=== PATIENT | female | born 1980 | race American Indian/Alaskan Native ===

== ENCOUNTER 2016-11-28 04:50 | Emergency (ER) | payer OTHER ==
[2016-11-28 05:00] VITALS: BMI 31.6
[2016-11-28 05:06] VITALS: TEMP 98.2
--- NOTE | 2016-11-28 05:28 | ED PDOC ---
Arrival/HPI - General Historian: Patient - History of Present Illness Time/Duration: Other (20:00 yesterday) Symptom Onset: Gradual Symptom Course: Unchanged Activities at Onset: Rest, Light Context: Home <Doom Rodriguez - Last Filed: 11/28/16 06:54> <Eric Klein - Last Filed: 11/28/16 12:58> - General Chief Complaint: ENT Problem Time Seen by Provider: 11/28/16 05:12 - History of Present Illness Narrative History of Present Illness (Text): 11/28/16 05:25 Ruchi Alan is a 36 year old female, with no significant past medical history , who presents to the Emergency department complaining of sore throat since 19: 30 yesterday. Patient states she ate a lot of shrimp at a buffet yesterday evening and now reports she feels like there is something stuck in her throat. Patient denies any shortness of breath, fever, chills, nausea, neck pain, or any other complaints. (Domo Rodriguez) Past Medical History - Provider Review Nursing Documentation Reviewed: Yes - Infectious Disease Hx of Infectious Diseases: None - Cardiac Hx Heart Murmur: Yes - Pulmonary Hx Asthma: Yes Hx Bronchitis: Yes - Psychiatric Hx Substance Use: No - Surgical History Hx Section: Yes - Anesthesia Hx Anesthesia: Yes Hx Anesthesia Reactions: No Hx Malignant Hyperthermia: No - Suicidal Assessment Feels Threatened In Home Enviroment: No <Domo Rodriguez - Last Filed: 11/28/16 06:54> Family/Social History - Physician Review Nursing Documentation Reviewed: Yes Family/Social History: Unknown Family HX Smoking Status: Light Smoker < 10 Cigarettes Daily Hx Alcohol Use: Yes Frequency of alcohol use: Socially Hx Substance Use: No <Domo Rodriguez - Last Filed: 11/28/16 06:54> Allergies/Home Meds <Domo Rodriguez - Last Filed: 11/28/16 06:54> <Eric Klein - Last Filed: 11/28/16 12:58> Allergies/Adverse Reactions: Allergies beeswax Allergy (Verified 11/28/16 05:00) ITCHING Home Medications: Home Meds Medication Instructions Recorded Confirmed Albuterol 0.083% [Albuterol 0.083% 2.5 mg INH BID PRN 10/11/14 11/30/14 Inhal Ramona (2.5 mg/3 ml) UD] Diphenhydramine Hydrochlorid 25 mg PO BID 11/30/14 11/30/14 [Benadryl] Prednisone 20 mg PO DAILY 11/30/14 11/30/14 Physical Exam Vital Signs Reviewed: Yes Temperature: Afebrile Blood Pressure: Normal Pulse: Regular Respiratory Rate: Normal Appearance: Positive for: Well-Appearing, Non-Toxic, Comfortable Pain Distress: None Mental Status: Positive for: Alert and Oriented X 3 - Systems Exam Pharnyx: Present: Normal. No: ERYTHEMA, EXUDATE, TONSILS ENLARGED, Peritonsilar Swelling, Uvular Deviation, Muffled/Hoarse Voice, Strider, Soft Palate/Uvular Edema <Domo Rodriguez - Last Filed: 11/28/16 06:54> <Eric Klein - Last Filed: 11/28/16 12:58> - Physical Exam Narrative Physical Exam (Text): - Review of Systems Constitutional: Normal. absent: Fatigue, Weight Change, Fevers Eyes: Normal ENT: +sore throat Respiratory: Normal absent: SOB, Cough, Sputum Cardiovascular: Normal absent: Chest pain, Palpitations, Syncope Gastrointestinal: Normal absent: Abdominal pain, Diarrhea, Nausea, Vomiting Genitourinary: Normal. absent: Dysuria, Frequency, Hematuria Musculoskeletal: Normal. absent: Arthralgias, Back Pain, Neck Pain Skin: Normal Neurological: Normal absent: Focal Weakness Endocrine: Normal Hemo/Lymphatic: Normal Psychiatric: Normal - Physical exam Patient appears well-appearing, age appropriate - Systems Exam Head: Present: Atraumatic, Normocephalic Pupils: Present: PERRL Extraocular Muscles: Present: EOMI Conjunctiva: Present: Normal Mouth: Present: Moist Mucous Membranes Neck: Present: Normal Range of Motion. No: MIDLINE TENDERNESS, Paraspinal Tenderness Respiratory/Chest: Present: Clear to Auscultation, Good Air Exchange. No: Respiratory Distress, Accessory Muscle Use, Tachypneic Cardiovascular: Present: Regular Rate and Rhythm, Normal S1, S2, Peripheral Pulses Present. No: Murmurs Neurological: Present: GCS=15, Speech Normal, cranial nerves II through XII fully intact with no cerebellar abnormality, neuro-sensory fully intact. No focal neurological deficits. Skin: Present: Warm, Dry, Normal Color. No: Rashes Lymphatic: Present: OX3, NI, NC Psychiatric: Present: Alert, Oriented x 3, Normal Insight, Normal Concentration (Domo Rodriguez) Vital Signs Temp Pulse Resp BP Pulse Ox 11/28/16 08:50 98.2 F 62 20 125/75 99 11/28/16 05:04 98.2 F 80 17 138/95 H 100 Medical Decision Making <Domo Rodriguez - Last Filed: 11/28/16 06:54> <Eric Klein - Last Filed: 11/28/16 12:58> ED Course and Treatment: 11/28/16 05:25 Impression: 36 year old female complaining of sore throat and foreign body sensation in her throat since yesterday. Exam is benign. Differential Diagnosis include but are not limited to: foreign body vs. pharyngitis vs. laryngitis Plan: -- CT Neck Soft Tissue w/o contrast -- Reassess and disposition Progress Notes: 11/28/16 07:00 patient signed out to Dr. Klein in stable condition, fu CT, reeval, dispo (Domo Rodriguez) 11/28/16 08:37 pt endorsed to me pending ct. cr shows mild tonsillitis. pt sleepign in nad. decadron dosed. advise outpt f/u and return precautions. (Eric Klein) - RAD Interpretation Radiology Orders: 11/28/16 05:29 NECK SOFT TISSUE W/O CONTRAST [CT] Stat - Medication Orders Current Medication Orders: Discontinued Medications Dexamethasone (Decadron) 10 mg PO STAT STA Stop: 11/28/16 08:28 Last Admin: 11/28/16 08:33 Dose: 10 mg - Scribe Statement The provider has reviewed the documentation as recorded by the Scribe <Domo Rodriguez - Last Filed: 11/28/16 06:54> <Eric Klein - Last Filed: 11/28/16 12:58> - Scribe Statement Liset Bursh All medical record entries made by the Scribe were at my direction and personally dictated by me. I have reviewed the chart and agree that the record accurately reflects my personal performance of the history, physical exam, medical decision making, and the department course for this patient. I have also personally directed, reviewed, and agree with the discharge instructions and disposition. (Domo Rodriguez) Disposition/Present on Arrival - Present on Arrival Any Indicators Present on Arrival: No History of DVT/PE: No History of Uncontrolled Diabetes: No Urinary Catheter: No History of Decub. Ulcer: No History Surgical Site Infection Following: None <Domo Rodriguez - Last Filed: 11/28/16 06:54> - Present on Arrival Any Indicators Present on Arrival: No - Disposition Have Diagnosis and Disposition been Completed?: Yes Disposition Time: 08:30 <Eric Klein - Last Filed: 11/28/16 12:58> - Disposition Diagnosis: Tonsillitis Disposition: HOME/ ROUTINE Condition: STABLE Discharge Instructions (ExitCare): Pharyngitis (ED), Tonsillitis (ED) Additional Instructions: please follow up with your doctor. return to er with worsening symptoms or concerns. Prescriptions: Ibuprofen [Motrin Tab] 400 mg PO Q6 PRN #20 tab PRN Reason: Pain, Mild (1-3) Referrals: [facility] [Outside] - Follow up with primary [facility] [place] [Outside] - Follow up with primary Timothy Lassiter DO [[facility]] - Follow up with primary
--- NOTE | 2016-11-28 08:24 | CT ---
EXAM: CT Neck Without Intravenous Contrast CLINICAL HISTORY: 36 years old, female; Pain; Painful swallowing; Additional info: RO fb TECHNIQUE: Axial computed tomography images of the neck without intravenous contrast. This CT exam was performed using one or more of the following dose reduction techniques: automated exposure control, adjustment of the mA and/or kV according to patient size, and/or use of iterative reconstruction technique. Coronal and sagittal reformatted images were created and reviewed. EXAM DATE/TIME: 11/28/2016 5:29 AM COMPARISON: No relevant prior studies available. FINDINGS: NASOPHARYNX: No acute abnormality of the adenoidal/nasopharyngeal tonsils identified. OROPHARYNX: Mild swelling of the left palatine tonsils, image 28 of series 2. This could be due to mild tonsillitis. No peritonsillar abscess is seen on this unenhanced exam. HYPOPHARYNX: No acute abnormality of the vallecula or piriform sinuses identified. LARYNX: No acute abnormality of the epiglottis identified. No acute abnormality of the vocal cords identified. TRACHEA: Visualized portions of the trachea appear patent. RETROPHARYNGEAL SPACE: No evidence of prevertebral/retropharyngeal fluid or fluid collection. SUBMANDIBULAR/PAROTID GLANDS: No acute abnormality of the parotid or submandibular glands identified. THYROID: No acute abnormality of the thyroid gland identified. BONES/JOINTS:No acute fractures or other acute bony abnormality noted. SOFT TISSUES: No findings to suggest significant cellulitis of the soft tissues. VASCULATURE: No definite acute abnormality of the major neck vessels is seen on this unenhanced exam. LYMPH NODES: Multiple small lymph nodes seen in the neck bilaterally, none appearing pathologically enlarged. This is a nonspecific finding. No evidence of diffuse pathologic lymphadenopathy. ESOPHAGUS: No acute abnormality of the upper esophagus identified. LUNG APICES: Lung apices appear clear. OTHER FINDINGS:No definite radioopaque ingested foreign bodies identified. IMPRESSION: - Mild swelling of the left palatine tonsils, which could be due to mild tonsillitis. - Otherwise, no evidence of significant acute process on this unenhanced exam. No definite radioopaque foreign bodies identified. - See above for remaining findings.
[2016-11-28 08:51] VITALS: BP 125/75; PULSE 62; RESP 20; O2SAT 99
== END 2016-11-28 08:52 | disposition home or self-care (01) ==
LOC: ED 04:50
DX: J03.90 Acute tonsillitis, unspecified (principal)
CPT/HCPCS: 70490; 99283; J8540

== ENCOUNTER 2017-12-04 21:32 | Observation (INO) | payer MEDICAID, OTHER ==
[2017-12-04 21:33] VITALS: BMI 31.6
[2017-12-04] MEDS ORDERED: Sodium Chloride 0.9% 1,000 ML IV STA (21:35)
[2017-12-04] MEDS ORDERED: Albuterol 0.083% Inhal Sol (2.5 mg/3 mL) UD IH STA (22:56)
[2017-12-04 23:26] LABS: BASO # 0.02 K/mm3 (0.0-2.0); BASO % 0.2 % (0.0-3.0); EOS # 0.1 (0.0-0.7); EOS % 1.4 % (1.5-5.0); GRAN # 4.91 (1.4-6.5); GRAN % 51.1 % (50.0-68.0); HEMOGLOBIN 12.1 g/dL (12.0-16.0); LYMPH # 3.8 (1.2-3.4); LYMPH % 39.7 % (22.0-35.0); MEAN CELL VOLUME 85.3 fl (80.0-105.0); MEAN CORPUSCULAR HEMOGLOBIN 29.2 pg (25.0-35.0); MEAN CORPUSCULAR HGB CONC 34.3 g/dl (31.0-37.0); MONO # 0.7 (0.1-0.6); MONO % 7.6 % (1.0-6.0); RBC 4.14 10^6/uL (3.5-6.1); RED CELL DISTRIBUTION WIDTH 13.5 % (11.5-14.5); WHITE BLOOD COUNT 9.6 10^3/ul (4.5-11.0)
[2017-12-04 23:27] LABS: ALB/GLOB RATIO 1.4 (1.1-1.8); ALBUMIN 4.3 g/dL (3.0-4.8); CALCIUM 8.8 mg/dL (8.4-10.5); GFR AFRICAN-AMERICAN > 60; GFR NON-AFRICAN AMERICAN > 60; LIPASE 33 U/L (23-300)
[2017-12-04 23:38] LABS: TROPONIN I < 0.01 ng/mL
[2017-12-04 23:42] LABS: ALT/SGPT 43 U/L (7-56); AST/SGOT 48 U/L (14-36); BLOOD UREA NITROGEN 17 mg/dL (7-21)
[2017-12-05 00:17] LABS: URINE BILIRUBIN NEGATIVE (NEGATIVE); URINE BLOOD NEGATIVE (NEGATIVE); URINE GLUCOSE (UA) NEGATIVE (NEGATIVE); URINE LEUKOCYTE ESTERASE MODERATE Leu/uL (NEGATIVE); URINE PROTEIN NEGATIVE mg/dL (<30 mg/dL); URINE UROBILINOGEN 0.2 E.U./dL (<1 E.U./dL)
[2017-12-05 00:44] LABS: URINE APPEARANCE SL CLOUDY (CLEAR); URINE COLOR YELLOW (YELLOW)
[2017-12-05 00:45] LABS: URINE RBC 0 - 2 /hpf (0-2)
[2017-12-05 00:46] LABS: URINE BACTERIA FEW (NEG)
[2017-12-05] MEDS ORDERED: Iohexol 350 MG/100 ML VIAL ONE (01:25)
--- NOTE | 2017-12-05 03:35 | ED PDOC ---
Arrival/HPI - General Historian: Patient - History of Present Illness Time/Duration: Prior to Arrival Symptom Onset: Sudden Symptom Course: Unchanged Quality: Pressure, Burning Severity Level: Moderate <Julianne Currie - Last Filed: 12/05/17 05:04> <Nikita Rojas - Last Filed: 12/05/17 06:07> - General Chief Complaint: GI Problem Time Seen by Provider: 12/04/17 21:35 - History of Present Illness Narrative History of Present Illness (Text): 12/05/17 03:32 37-year-old female presents today with nausea vomiting chest pain and abdominal pain. Patient states prior to arrival she started to develop burping and then developed a pressure sensation in the chest patient then states she started vomiting and coughing. Patient denies fevers or chills. Denies URI symptoms. She denies headaches dizziness or weakness patient states she is a burning sensation in her throat from throwing up so much. Patient states the pressure sensation is located in the anterior chest. Patient states she also has some epigastric upper abdominal pain. She denies any urinary symptoms. She denies back pain. Denies any other complaints. (Julianne Currie) Past Medical History - Provider Review Nursing Documentation Reviewed: Yes - Travel History Have you recently traveled outside [place] w/in the past 3 mons?: No - Infectious Disease Hx of Infectious Diseases: None - Tetanus Immunization Tetanus Immunization: Unknown - Cardiac Hx Heart Murmur: Yes - Pulmonary Hx Asthma: Yes Hx Bronchitis: Yes - Psychiatric Hx Substance Use: No - Surgical History Hx Section: Yes - Anesthesia Hx Anesthesia: Yes Hx Anesthesia Reactions: No Hx Malignant Hyperthermia: No - Suicidal Assessment Feels Threatened In Home Enviroment: No <Julianne Currie - Last Filed: 12/05/17 05:04> Family/Social History - Physician Review Nursing Documentation Reviewed: Yes Family/Social History: Unknown Family HX Smoking Status: Light Smoker < 10 Cigarettes Daily Hx Alcohol Use: Yes Hx Substance Use: No <Julianne Currie - Last Filed: 12/05/17 05:04> Allergies/Home Meds <Julianne Currie - Last Filed: 12/05/17 05:04> <Nikita Rojas - Last Filed: 12/05/17 06:07> Allergies/Adverse Reactions: Allergies beeswax Allergy (Verified 11/28/16 05:00) ITCHING Home Medications: Home Meds Medication Instructions Recorded Confirmed Albuterol 0.083% [Albuterol 0.083% 2.5 mg INH BID PRN 10/11/14 11/30/14 Inhal Ramona (2.5 mg/3 ml) UD] Diphenhydramine Hydrochlorid 25 mg PO BID 11/30/14 11/30/14 [Benadryl] Prednisone 20 mg PO DAILY 11/30/14 11/30/14 Review of Systems - Review of Systems Constitutional: absent: Fatigue, Fevers Respiratory: absent: SOB, Cough Cardiovascular: Chest Pain. absent: Palpitations Gastrointestinal: Abdominal Pain, Nausea, Vomiting. absent: Constipation, Diarrhea Genitourinary Female: absent: Dysuria, Frequency, Hematuria Musculoskeletal: absent: Arthralgias, Back Pain, Neck Pain Skin: absent: Rash, Pruritis Neurological: absent: Headache, Dizziness Psychiatric: absent: Anxiety, Depression, Suicidal Ideation <Julianne Currie - Last Filed: 12/05/17 05:04> Physical Exam Vital Signs Reviewed: Yes Temperature: Afebrile Blood Pressure: Normal Pulse: Regular Respiratory Rate: Normal Appearance: Positive for: Well-Appearing, Non-Toxic, Comfortable Pain Distress: None Mental Status: Positive for: Alert and Oriented X 3 - Systems Exam Head: Present: Atraumatic Mouth: Present: Moist Mucous Membranes Respiratory/Chest: Present: Clear to Auscultation Cardiovascular: Present: Regular Rate and Rhythm Abdomen: Present: Tenderness (+ epigastric tenderness), Normal Bowel Sounds. No : Distention, Peritoneal Signs, Rebound, Guarding Back: Present: Normal Inspection. No: CVA Tenderness, Midline Tenderness, Paraspinal Tenderness Upper Extremity: Present: Normal ROM Lower Extremity: Present: Normal ROM Neurological: Present: GCS=15, Speech Normal Skin: Present: Warm, Dry, Normal Color. No: Rashes Psychiatric: Present: Alert, Oriented x 3 <Julianne Currie - Last Filed: 12/05/17 05:04> Vital Signs Temp Pulse Resp BP Pulse Ox 12/04/17 23:14 98.1 F 81 18 132/79 100 Medical Decision Making <Julianne Currie - Last Filed: 12/05/17 05:04> <Nikita Rojas - Last Filed: 12/05/17 06:07> ED Course and Treatment: 12/05/17 03:36 Patient is nontoxic well appearing with stable vital signs presenting with CP, nausea/vomiting, and abdominal pain. CBC wnl CMP wnl Lipase wnl trop; wnl Urinalysis: moderate leukocytes cxr; wnl ekg; sinus rhythm at 85 bpm normal axis normal intervals no ST elevations, septal infarct CAT scan: Trace free pelvic fluid. Patient reassessment: pt feeling better; still with cp. states nausea has improved. Discussed all results with patient in depth case discussed with dr. fishman; accepts observational status admission for CP with abnormal ekg. Impression: Chest pain, Abdominal pain, abnormal ekg Admit observational status to tele. (Julianne Currie) - Lab Interpretations Lab Results: 12/04/17 23:05 12/04/17 23:05 Lab Results 12/04/17 23:05: WBC 9.6, RBC 4.14, Hgb 12.1, Hct 35.3 L, MCV 85.3, MCH 29.2, MCHC 34.3, RDW 13.5, Plt Count 285, MPV 10.0, Gran % 51.1, Lymph % (Auto) 39.7 H , [place] % (Auto) 7.6 H, Eos % (Auto) 1.4 L, Baso % (Auto) 0.2, Gran # 4.91, Lymph # (Auto) 3.8 H, [place] # (Auto) 0.7 H, Eos # (Auto) 0.1, Baso # (Auto) 0.02 12/04/17 23:05: Sodium 135, Potassium 3.7, Chloride 99, Carbon Dioxide 25, Anion Gap 15, BUN 17, Creatinine 0.8, Est GFR ( Amer) > 60, Est GFR (Non- Af Amer) > 60, Random Glucose 90, Calcium 8.8, Total Bilirubin 0.4, AST 48 H, ALT 43, Alkaline Phosphatase 65, Lactate Dehydrogenase 555, Total Creatine Kinase 348 H, CK-MB (CK-2) 3.0, CK-MB (CK-2) % Cancelled, Troponin I < 0.01, Total Protein 7.4, Albumin 4.3, Globulin 3.1, Albumin/Globulin Ratio 1.4, Lipase 33 12/04/17 22:55: Urine Color Yellow, Urine Appearance Sl cloudy, Urine pH 6.0, Ur Specific [place] <= 1.005, Urine Protein Negative, Urine Glucose (UA) Negative, Urine Ketones Negative, Urine Blood Negative, Urine Nitrate Negative, Urine Bilirubin Negative, Urine Urobilinogen 0.2, Ur Leukocyte Esterase Moderate H, Urine RBC 0 - 2, Urine WBC 2 - 5, Ur Epithelial Cells 4 - 5, Urine Bacteria Few - RAD Interpretation Radiology Orders: 12/04/17 22:52 CHEST PORTABLE [RAD] Stat 12/05/17 00:46 ABD & PELVIS IV CONTRAST ONLY [CT] Stat - Medication Orders Current Medication Orders: Albuterol/Ipratropium (Duoneb 3 Mg/0.5 Mg (3 Ml) Ud) 3 ml IH [id number] PRN PRN Reason: Shortness of Breath Enoxaparin Sodium (Lovenox) 40 mg SC DAILY AMIRA PRN Reason: Protocol Famotidine (Pepcid) 20 mg IVP DAILY AMIRA Ondansetron HCl (Zofran Inj) 4 mg IVP Q4H PRN PRN Reason: Nausea/Vomiting Discontinued Medications Albuterol Sulfate (Albuterol 0.083% Inhal Ramona (2.5 Mg/3 Ml) Ud) 2.5 mg IH STAT STA Stop: 12/04/17 22:57 Last Admin: 12/04/17 23:08 Dose: 2.5 mg Aspirin (Aspirin) 325 mg PO STAT STA Stop: 12/05/17 03:32 Cephalexin Monohydrate (Keflex) 500 mg PO STAT STA PRN Reason: Protocol Stop: 12/05/17 03:45 Clonidine HCl (Catapres) 0.1 mg PO ONCE ONE Stop: 12/05/17 04:36 Famotidine (Pepcid) 20 mg IVP STAT STA Stop: 12/04/17 22:19 Last Admin: 12/04/17 23:07 Dose: 20 mg IVP Administration Document 12/04/17 23:07 ROBBIN (Rec: 12/04/17 23:07 ROBBIN [id number]) Charges for Administration # of IVP Administrations 1 Sodium Chloride (Sodium Chloride 0.9%) 1,000 mls @ 999 mls/hr IV .Q1H1M STA Stop: 12/04/17 22:35 Last Admin: 12/04/17 22:57 Dose: 999 mls/hr eMAR Start Stop Document 12/04/17 22:57 LA (Rec: 12/04/17 22:58 LA [id number]) Intravenous Solution Start Date 12/04/17 Start Time 22:58 End Date 12/04/17 End time 23:59 Total Infusion Time 61 Ondansetron HCl (Zofran Inj) 4 mg IVP STAT STA Stop: 12/04/17 22:53 Last Admin: 12/04/17 23:09 Dose: 4 mg IVP Administration Document 12/04/17 23:09 LA (Rec: 12/04/17 23:09 LA [id number]) Charges for Administration # of IVP Administrations 1 Ondansetron HCl (Zofran Inj) 4 mg IVP STAT STA Stop: 12/05/17 00:31 Last Admin: 12/05/17 01:15 Dose: 4 mg IVP Administration Document 12/05/17 01:15 LA (Rec: 12/05/17 01:19 LA [id number]) Charges for Administration # of IVP Administrations 1 - PA / [employer] REPAIRER / Resident Statement / has reviewed & agrees with the documentation as recorded. / has examined the patient and agrees with the treatment plan. <Nikita Rojas - Last Filed: 12/05/17 06:07> Disposition/Present on Arrival - Present on Arrival Any Indicators Present on Arrival: No History of DVT/PE: No History of Uncontrolled Diabetes: No Urinary Catheter: No History of Decub. Ulcer: No History Surgical Site Infection Following: None - Disposition Have Diagnosis and Disposition been Completed?: Yes Disposition Time: 03:32 Patient Plan: Observation <Julianne Currie - Last Filed: 12/05/17 05:04> <Nikita Rojas - Last Filed: 12/05/17 06:07> - Disposition Diagnosis: Chest pain, Abdominal pain, Nausea and vomiting, Abnormal EKG Disposition: HOSPITALIZED Patient Problems: Current Active Problems Problem Status Onset Abdominal pain Acute Abnormal EKG Acute Chest pain Acute Nausea and vomiting Acute Condition: FAIR
--- NOTE | 2017-12-05 04:24 | CP.PCM.HP ---
<Priscilla Carver - Last Filed: 12/05/17 06:14> History of Present Illness - History of Present Illness History of Present Illness: History and Physical -Hospitalist Service CC: "I've been vomiting" HPI: Patient is a 37 year old female with past medical history of asthma/ bronchitis, heart murmur, hypertension? [place] [facility] [place], nausea and vomiting. Patient states that she vomited twice, non-bloody, non- bilious this evening. She also admits to having thick loose stools. States that she ate chicken and yakut fries prior to onset of symptoms. She also admits to feeling chest pain that is right sided and constant in nature, non-radiating. Patient is a poor historian and is uncooperative with the interview. Patient states that she does not want to keep talking because it is making her chest hurt more. Patient later admitted to smoking weed on wednesday prior to onset of abdominal pain. ED course: Pepcid 20mg IVP, Zofran 4mg x2, Albuterol, Keflex 500mg x 1, ASA 325mg, NS bolus Allergies: Beeswax Medications: Albuterol inhaler Medical History: Hypertension, Asthma/Bronchitis, heart murmur Surgical History: C/S x 2 Social History: Admits to smoking cigarettes (unknown amount), drinks alcohol during the weekend, denies drugs use Family History: Denies Present on Admission - Present on Admission Any Indicators Present on Admission: No Past Patient History - Infectious Disease Hx of Infectious Diseases: None - Tetanus Immunizations Tetanus Immunization: Unknown - Past Social History Smoking Status: Light Smoker < 10 Cigarettes Daily - CARDIAC Hx Heart Murmur: Yes - PULMONARY Hx Asthma: Yes Hx Bronchitis: Yes - PSYCHIATRIC Hx Substance Use: No - SURGICAL HISTORY Hx Section: Yes - ANESTHESIA Hx Anesthesia: Yes Hx Anesthesia Reactions: No Hx Malignant Hyperthermia: No Meds Allergies/Adverse Reactions: Allergies Allergy/AdvReac Type Severity Reaction Status Date / Time beeswax Allergy ITCHING Verified 11/28/16 05:00 Physical Exam - Constitutional Appears: No Acute Distress - Head Exam Head Exam: ATRAUMATIC, NORMAL INSPECTION, NORMOCEPHALIC - Eye Exam Eye Exam: EOMI, Normal appearance Pupil Exam: NORMAL ACCOMODATION - ENT Exam ENT Exam: Mucous Membranes Moist - Respiratory Exam Respiratory Exam: Clear to Auscultation Bilateral, NORMAL BREATHING PATTERN. absent: Rales, Rhonchi, Wheezes - Cardiovascular Exam Cardiovascular Exam: REGULAR RHYTHM, +S1, +S2 Additional comments: + Right chest wall tenderness to palpation - GI/Abdominal Exam GI & Abdominal Exam: Normal Bowel Sounds, Soft, Tenderness (+epigastric tenderness). absent: Guarding, Rebound, Rigid - Extremities Exam Extremities exam: Positive for: normal inspection - Back Exam Back exam: NORMAL INSPECTION - Neurological Exam Neurological exam: Alert, Oriented x3 - Psychiatric Exam Psychiatric exam: Normal Affect, Normal Mood - Skin Skin Exam: Dry, Normal Color, Warm Results - Vital Signs Recent Vital Signs: Last Vital Signs Temp 98.1 F 12/04/17 23:14 Pulse 81 12/04/17 23:14 Resp 18 12/04/17 23:14 BP 132/79 12/04/17 23:14 Pulse Ox 100 12/04/17 23:14 - Labs Result Diagrams: 12/04/17 23:05 12/04/17 23:05 Assessment & Plan - Assessment and Plan (Free Text) Assessment: A/P: Patient is a 37 year old female with past medical history of hypertension? , asthma and substance abuse presents to the ED for abdominal pain with nausea and vomiting. Abdominal Pain -Stable, afebrile -Will admit for observation -CT abd/pelvis - showed trace pelvic free fluid, official read pending -Diet: NPO except medications -Zofran prn nausea -Pepcid 20mg IVP daily -Advance diet as tolerated Substance abuse -Patient admitted to smoking weed on Wednesday prior to onset of symptoms -Urine drug screen ordered, serum alcohol level ordered -Clonidine 0.1mg PO STAT given -Cessation advised Chest pain -EKG sinus rhythm at [address] elevations, septal infarct, age undetermined -Likely musculoskeletal in nature -Initial troponin negative, trend troponins Q8H x 2 -F/U TSH/Free T4, HgA1C, Lipid panel -Will Monitor History of Hypertension? -Currently normatensive -Will monitor off anti-hypertensive medications until meds can be verified -Patient is a poor historian Abnormal UA -UA with moderate leukocyte esterase -Denies any urinary complaints -Given Keflex 500mg PO x 1 in the ED -Follow up urine cultures History of Asthma -Duonebs Q6H prn shortness of breath GI/DVT ppx: -Pepcid 20mg IVP daily -Lovenox 40mg SC daily Plan discussed with Dr Andrzej Carver DO PGY-1 <Andrzej Gan N - Last Filed: 12/05/17 07:15> Results - Vital Signs Recent Vital Signs: Last Vital Signs Temp 98.1 F 12/04/17 23:14 Pulse 81 12/04/17 23:14 Resp 20 12/05/17 04:21 BP 132/79 12/04/17 23:14 Pulse Ox 100 12/04/17 23:14 - Labs Result Diagrams: 12/04/17 23:05 12/04/17 23:05 Labs: Laboratory Results - last 24 hr 12/05/17 12/05/17 12/05/17 06:00 06:00 06:00 Troponin I < 0.01 Triglycerides 248 H Cholesterol 168 LDL Cholesterol Direct 35 HDL Cholesterol 57 Free T4 0.90 Alcohol, Quantitative < 10
[2017-12-05] MEDS ORDERED: Albuterol-Ipratrop 3 mg / 0.5 (3 ml) UD IH PRN (04:31)
[2017-12-05 06:55] LABS: HDL CHOLESTEROL 57 mg/dL (29-60)
[2017-12-05 07:03] LABS: TROPONIN I < 0.01 ng/mL
[2017-12-05 07:06] LABS: LDL CHOLESTEROL 35 mg/dL (0-129)
[2017-12-05 07:09] LABS: FREE T4 0.9 ng/dL (0.78-2.19)
[2017-12-05 08:10] VITALS: BP 123/88; PULSE 59; RESP 18; TEMP 98.4; O2SAT 99
--- NOTE | 2017-12-05 08:56 | CT ---
PROCEDURE: CT Abdomen and Pelvis with contrast HISTORY: Nausea and abdominal pain. COMPARISON: None. TECHNIQUE: Contrast dose: Radiation dose: Total exam DLP = mGy-cm. This CT exam was performed using one or more of the following dose reduction techniques: Automated exposure control, adjustment of the mA and/or kV according to patient size, and/or use of iterative reconstruction technique. FINDINGS: LOWER THORAX: Unremarkable. LIVER: Unremarkable. No gross lesion or ductal dilatation. GALLBLADDER AND BILE DUCTS: Unremarkable. PANCREAS: Unremarkable. No gross lesion or ductal dilatation. SPLEEN: Unremarkable. ADRENALS: Unremarkable. No mass. KIDNEYS AND URETERS: Unremarkable. No hydronephrosis. No solid mass. VASCULATURE: Unremarkable. No aortic aneurysm. BOWEL: Unremarkable. No obstruction. No gross mural thickening. APPENDIX: Normal appendix. PERITONEUM: Trace free fluid identified in the pelvis/cul de sac. LYMPH NODES: Unremarkable. No enlarged lymph nodes. BLADDER: Unremarkable. REPRODUCTIVE: Unremarkable. BONES: No acute fracture. OTHER FINDINGS: None. IMPRESSION: No acute findings related to/accounting for the clinical presentation. Additional benign and/or incidental findings described above. Concordant results (preliminary interpretation) provided by [facility]. Procedure Completed: 02:33 Preliminary ([facility]) Report: Dictated and Authenticated: 04:21 Final Interpretation: 08:56
[2017-12-05] MEDS ORDERED: Enoxaparin 40 mg Syringe SC SCH (10:00)
--- NOTE | 2017-12-05 10:28 | RAD ---
HISTORY: Nausea, vomiting. COMPARISON: No prior. FINDINGS: LUNGS: No active pulmonary disease. PLEURA: No significant pleural effusion identified, no pneumothorax apparent. CARDIOVASCULAR: Normal. OSSEOUS STRUCTURES: No significant abnormalities. VISUALIZED UPPER ABDOMEN: Normal. OTHER FINDINGS: None. IMPRESSION: No active disease.
--- NOTE | 2017-12-05 10:44 | CP.PCM.DIS ---
<Renetta Cao - Last Filed: 12/05/17 12:20> Provider - Provider Date of Admission: 12/05/17 03:48 Attending physician: Rios Montes MD Consults: none Time Spent in preparation of Discharge (in minutes): 45 Diagnosis - Discharge Diagnosis (1) Abdominal pain Status: Acute (2) Gastroenteritis Status: Acute (3) Nausea and vomiting Status: Acute Hospital Course - Lab Results Lab Results: Most Recent Lab Values WBC 9.6 10^3/ul (4.5-11.0) 12/04/17 23:05 RBC 4.14 10^6/uL (3.5-6.1) 12/04/17 23:05 Hgb 12.1 g/dL (12.0-16.0) 12/04/17 23:05 Hct 35.3 % (36.0-48.0) L 12/04/17 23:05 MCV 85.3 fl (80.0-105.0) 12/04/17 23:05 MCH 29.2 pg (25.0-35.0) 12/04/17 23:05 MCHC 34.3 g/dl (31.0-37.0) 12/04/17 23:05 RDW 13.5 % (11.5-14.5) 12/04/17 23:05 Plt Count 285 10^3/uL (120.0-450.0) 12/04/17 23:05 MPV 10.0 fl (7.0-11.0) 12/04/17 23:05 Gran % 51.1 % (50.0-68.0) 12/04/17 23:05 Lymph % (Auto) 39.7 % (22.0-35.0) H 12/04/17 23:05 [place] % (Auto) 7.6 % (1.0-6.0) H 12/04/17 23:05 Eos % (Auto) 1.4 % (1.5-5.0) L 12/04/17 23:05 Baso % (Auto) 0.2 % (0.0-3.0) 12/04/17 23:05 Gran # 4.91 (1.4-6.5) 12/04/17 23:05 Lymph # (Auto) 3.8 (1.2-3.4) H 12/04/17 23:05 [place] # (Auto) 0.7 (0.1-0.6) H 12/04/17 23:05 Eos # (Auto) 0.1 (0.0-0.7) 12/04/17 23:05 Baso # (Auto) 0.02 K/mm3 (0.0-2.0) 12/04/17 23:05 Sodium 135 mmol/L (132-148) 12/04/17 23:05 Potassium 3.7 mmol/L (3.6-5.0) 12/04/17 23:05 Chloride 99 mmol/L (98-107) 12/04/17 23:05 Carbon Dioxide 25 mmol/L (21-33) 12/04/17 23:05 Anion Gap 15 (10-20) 12/04/17 23:05 BUN 17 mg/dL (7-21) 12/04/17 23:05 Creatinine 0.8 mg/dl (0.7-1.2) 12/04/17 23:05 Est GFR ( Amer) > 60 12/04/17 23:05 Est GFR (Non-Af Amer) > 60 12/04/17 23:05 Random Glucose 90 mg/dL (70-110) 12/04/17 23:05 Calcium 8.8 mg/dL (8.4-10.5) 12/04/17 23:05 Total Bilirubin 0.4 mg/dL (0.2-1.3) 12/04/17 23:05 AST 48 U/L (14-36) H 12/04/17 23:05 ALT 43 U/L (7-56) 12/04/17 23:05 Alkaline Phosphatase 65 U/L (38-126) 12/04/17 23:05 Lactate Dehydrogenase 555 U/L (333-699) 12/04/17 23:05 Total Creatine Kinase 348 U/L (35-230) H 12/04/17 23:05 CK-MB (CK-2) 3.0 ng/mL (0.0-3.6) 12/04/17 23:05 CK-MB (CK-2) % Cancelled 12/04/17 23:05 Troponin I < 0.01 ng/mL 12/05/17 06:00 Total Protein 7.4 g/dL (5.8-8.3) 12/04/17 23:05 Albumin 4.3 g/dL (3.0-4.8) 12/04/17 23:05 Globulin 3.1 gm/dL 12/04/17 23:05 Albumin/Globulin Ratio 1.4 (1.1-1.8) 12/04/17 23:05 Triglycerides 248 mg/dL (35-160) H 12/05/17 06:00 Cholesterol 168 mg/dL (130-200) 12/05/17 06:00 LDL Cholesterol Direct 35 mg/dL (0-129) 12/05/17 06:00 HDL Cholesterol 57 mg/dL (29-60) 12/05/17 06:00 Lipase 33 U/L (23-300) 12/04/17 23:05 Free T4 0.90 ng/dL (0.78-2.19) 12/05/17 06:00 TSH 3rd Generation 3.81 mIU/mL (0.46-4.68) 12/05/17 06:00 Urine Color Yellow (YELLOW) 12/04/17 22:55 Urine Appearance Sl cloudy (CLEAR) 12/04/17 22:55 Urine pH 6.0 (4.7-8.0) 12/04/17 22:55 Ur Specific [place] <= 1.005 (1.005-1.035) 12/04/17 22:55 Urine Protein Negative mg/dL (<30 mg/dL) 12/04/17 22:55 Urine Glucose (UA) Negative mg/dL (NEGATIVE) 12/04/17 22:55 Urine Ketones Negative mg/dL (NEGATIVE) 12/04/17 22:55 Urine Blood Negative (NEGATIVE) 12/04/17 22:55 Urine Nitrate Negative (NEGATIVE) 12/04/17 22:55 Urine Bilirubin Negative (NEGATIVE) 12/04/17 22:55 Urine Urobilinogen 0.2 E.U./dL (<1 E.U./dL) 12/04/17 22:55 Ur Leukocyte Esterase Moderate Heather/uL (NEGATIVE) H 12/04/17 22:55 Urine RBC 0 - 2 /hpf (0-2) 12/04/17 22:55 Urine WBC 2 - 5 /hpf (0-6) 12/04/17 22:55 Ur Epithelial Cells 4 - 5 /hpf (0-5) 12/04/17 22:55 Urine Bacteria Few (NEG) 12/04/17 22:55 Alcohol, Quantitative < 10 mg/dL (0-10) 12/05/17 06:00 - Hospital Course Hospital Course: 37 year old female with past medical history of asthma/bronchitis, asthma, substance abuse, presents to [facility] for abdominal pain, nausea and vomiting. Patient states that she vomited twice, non-bloody, non-bilious this evening. States that she ate chicken and yakut fries prior to onset of symptoms. CT abd pelvis showed no acute findings. Given zofran, pepcid. This morning, nausea, vomiting resolved, minimal abdominal pain. Patient states that she is hungry, tolerated PO diet well, demading more food after breakfast tray. Patient ambulating well, took a shower. Patient discharged home with zofran, protonix. Patient to follow up with PMD in 1 week. Patient requesting HIV test, states that she will follow up results here in 1 week. Case seen and discussed with Dr Montes. Renetta Cao, PGY2 Discharge Exam - Head Exam Head Exam: ATRAUMATIC, NORMAL INSPECTION, NORMOCEPHALIC - Eye Exam Eye Exam: EOMI, PERRL. absent: Conjunctival injection, Nystagmus, Scleral icterus Pupil Exam: NORMAL ACCOMODATION, PERRL. absent: Irregular, Miosis, Mydriatic, Unequal - ENT Exam ENT Exam: Mucous Membranes Moist - Neck Exam Neck exam: Full Rom - Respiratory Exam Respiratory Exam: Clear to PA & Lateral, NORMAL BREATHING PATTERN. absent: Chest Wall Tenderness, Prolonged Expiratory Phase, Rales, Rhonchi, Wheezes, Respiratory Distress, Stridor - GI/Abdominal Exam GI & Abdominal Exam: Normal Bowel Sounds, Soft, Tenderness (mild TTP in epigastric region). absent: Distended, Firm, Guarding, Mass, Organomegaly, Rebound - Extremities Exam Extremities exam: normal inspection - Back Exam Back exam: NORMAL INSPECTION - Neurological Exam Neurological exam: Alert, Oriented x3 - Skin Skin Exam: Dry, Normal Color, Warm Discharge Plan - Discharge Medications Prescriptions: Ondansetron HCl [Zofran] 4 mg PO Q6 #6 tablet Pantoprazole Sodium [Protonix] 40 mg PO DAILY #30 ect - Follow Up Plan Condition: FAIR Disposition: HOME/ ROUTINE Instructions: Acute Abdomen (Belly Pain), Adult (DC), Nausea and Vomiting, Adult (DC), Gastroenteritis (DC) Additional Instructions: - Please follow up HIV in medical records. - Take zofran and protonix - Follow up with PMD in 1 week. - Return to ER for any concerns. <Rios Montes - Last Filed: 12/07/17 14:17> Provider - Provider Date of Admission: 12/05/17 03:48 Attending physician: Rios Montes MD Hospital Course - Lab Results Lab Results: Most Recent Lab Values WBC 9.6 10^3/ul (4.5-11.0) 12/04/17 23:05 RBC 4.14 10^6/uL (3.5-6.1) 12/04/17 23:05 Hgb 12.1 g/dL (12.0-16.0) 12/04/17 23:05 Hct 35.3 % (36.0-48.0) L 12/04/17 23:05 MCV 85.3 fl (80.0-105.0) 12/04/17 23:05 MCH 29.2 pg (25.0-35.0) 12/04/17 23:05 MCHC 34.3 g/dl (31.0-37.0) 12/04/17 23:05 RDW 13.5 % (11.5-14.5) 12/04/17 23:05 Plt Count 285 10^3/uL (120.0-450.0) 12/04/17 23:05 MPV 10.0 fl (7.0-11.0) 12/04/17 23:05 Gran % 51.1 % (50.0-68.0) 12/04/17 23:05 Lymph % (Auto) 39.7 % (22.0-35.0) H 12/04/17 23:05 [place] % (Auto) 7.6 % (1.0-6.0) H 12/04/17 23:05 Eos % (Auto) 1.4 % (1.5-5.0) L 12/04/17 23:05 Baso % (Auto) 0.2 % (0.0-3.0) 12/04/17 23:05 Gran # 4.91 (1.4-6.5) 12/04/17 23:05 Lymph # (Auto) 3.8 (1.2-3.4) H 12/04/17 23:05 [place] # (Auto) 0.7 (0.1-0.6) H 12/04/17 23:05 Eos # (Auto) 0.1 (0.0-0.7) 12/04/17 23:05 Baso # (Auto) 0.02 K/mm3 (0.0-2.0) 12/04/17 23:05 Sodium 135 mmol/L (132-148) 12/04/17 23:05 Potassium 3.7 mmol/L (3.6-5.0) 12/04/17 23:05 Chloride 99 mmol/L (98-107) 12/04/17 23:05 Carbon Dioxide 25 mmol/L (21-33) 12/04/17 23:05 Anion Gap 15 (10-20) 12/04/17 23:05 BUN 17 mg/dL (7-21) 12/04/17 23:05 Creatinine 0.8 mg/dl (0.7-1.2) 12/04/17 23:05 Est GFR ( Amer) > 60 12/04/17 23:05 Est GFR (Non-Af Amer) > 60 12/04/17 23:05 Random Glucose 90 mg/dL (70-110) 12/04/17 23:05 Hemoglobin A1c 5.6 % (4.2-6.5) 12/05/17 06:00 Calcium 8.8 mg/dL (8.4-10.5) 12/04/17 23:05 Total Bilirubin 0.4 mg/dL (0.2-1.3) 12/04/17 23:05 AST 48 U/L (14-36) H 12/04/17 23:05 ALT 43 U/L (7-56) 12/04/17 23:05 Alkaline Phosphatase 65 U/L (38-126) 12/04/17 23:05 Lactate Dehydrogenase 555 U/L (333-699) 12/04/17 23:05 Total Creatine Kinase 348 U/L (35-230) H 12/04/17 23:05 CK-MB (CK-2) 3.0 ng/mL (0.0-3.6) 12/04/17 23:05 CK-MB (CK-2) % Cancelled 12/04/17 23:05 Troponin I < 0.01 ng/mL 12/05/17 06:00 Total Protein 7.4 g/dL (5.8-8.3) 12/04/17 23:05 Albumin 4.3 g/dL (3.0-4.8) 12/04/17 23:05 Globulin 3.1 gm/dL 12/04/17 23:05 Albumin/Globulin Ratio 1.4 (1.1-1.8) 12/04/17 23:05 Triglycerides 248 mg/dL (35-160) H 12/05/17 06:00 Cholesterol 168 mg/dL (130-200) 12/05/17 06:00 LDL Cholesterol Direct 35 mg/dL (0-129) 12/05/17 06:00 HDL Cholesterol 57 mg/dL (29-60) 12/05/17 06:00 Lipase 33 U/L (23-300) 12/04/17 23:05 Free T4 0.90 ng/dL (0.78-2.19) 12/05/17 06:00 TSH 3rd Generation 3.81 mIU/mL (0.46-4.68) 12/05/17 06:00 Urine Color Yellow (YELLOW) 12/04/17 22:55 Urine Appearance Sl cloudy (CLEAR) 12/04/17 22:55 Urine pH 6.0 (4.7-8.0) 12/04/17 22:55 Ur Specific [place] <= 1.005 (1.005-1.035) 12/04/17 22:55 Urine Protein Negative mg/dL (<30 mg/dL) 12/04/17 22:55 Urine Glucose (UA) Negative mg/dL (NEGATIVE) 12/04/17 22:55 Urine Ketones Negative mg/dL (NEGATIVE) 12/04/17 22:55 Urine Blood Negative (NEGATIVE) 12/04/17 22:55 Urine Nitrate Negative (NEGATIVE) 12/04/17 22:55 Urine Bilirubin Negative (NEGATIVE) 12/04/17 22:55 Urine Urobilinogen 0.2 E.U./dL (<1 E.U./dL) 12/04/17 22:55 Ur Leukocyte Esterase Moderate Heather/uL (NEGATIVE) H 12/04/17 22:55 Urine RBC 0 - 2 /hpf (0-2) 12/04/17 22:55 Urine WBC 2 - 5 /hpf (0-6) 12/04/17 22:55 Ur Epithelial Cells 4 - 5 /hpf (0-5) 12/04/17 22:55 Urine Bacteria Few (NEG) 12/04/17 22:55 Urine Opiates Screen Negative (NEGATIVE) 12/05/17 10:36 Urine Methadone Screen Negative (NEGATIVE) 12/05/17 10:36 Ur Barbiturates Screen Negative (NEGATIVE) 12/05/17 10:36 Ur Phencyclidine Scrn Positive (NEGATIVE) H 12/05/17 10:36 Ur Amphetamines Screen Negative (NEGATIVE) 12/05/17 10:36 U Benzodiazepines Scrn Negative (NEGATIVE) 12/05/17 10:36 U Oth Cocaine Metabols Negative (NEGATIVE) 12/05/17 10:36 U Cannabinoids Screen Negative (NEGATIVE) 12/05/17 10:36 Alcohol, Quantitative < 10 mg/dL (0-10) 12/05/17 06:00 HIV 1&2 Ag/Ab, 4th Gen Nonreactive (Nonreactive) 12/05/17 09:00 Attending/Attestation - Attestation I have personally seen and examined this patient.: Yes I have fully participated in the care of the patient.: Yes I have reviewed all pertinent clinical information, including history, physical exam and plan: Yes Notes (Text): 12/07/17 14:14 attending Note: patient seen and examined with resident. Patient is a 37 year old female admitted with abdominal pain and nausea. patient uses marijuana. UDS is positive for PCP. complete drug abuse cessation is stongly advise. CT abdomen and pelvis is normal. Patient is tolerating diet. Patient requested HIV for wellfare papaerwork. HIV is done. results pending. advised to follow up with medical records for results. Discharge home and follow up with PMD. 12/07/17 14:15 12/07/17 14:16
[2017-12-05 11:00] LABS: BARBITURATES, UR NEGATIVE (NEGATIVE); BENZODIAZEPINES, UR NEGATIVE (NEGATIVE); OPIATES, UR NEGATIVE (NEGATIVE); PHENCYCLIDINE, UR POSITIVE (NEGATIVE)
[2017-12-05] MEDS ORDERED: Simethicone 80 mg Chewtab PO STA (11:22)
--- NOTE | 2017-12-05 17:03 | CARD ---
APPROVED REPORT EKG Measurement Heart [id number] <Conclusion> Normal sinus rhythm Septal infarct, age undetermined Abnormal ECG
[2017-12-06] MEDS ORDERED: Pantoprazole 40 mg EC Tab PO SCH (06:00)
== END 2017-12-05 14:29 | disposition home or self-care (01) ==
LOC: ED 21:32 → ERH 12-05 03:48 → 3RNO 12-05 05:49
PROVIDERS: ADMIT Internal Medicine; ATTEND Internal Medicine
DX: K52.9 Noninfective gastroenteritis and colitis, unspecified (principal); R07.9 Chest pain, unspecified; J45.909 Unspecified asthma, uncomplicated; F17.210 Nicotine dependence, cigarettes, uncomplicated; I10 Essential (primary) hypertension; F12.10 Cannabis abuse, uncomplicated; R82.90 Unspecified abnormal findings in urine
CPT/HCPCS: 36415; 71045; 74177; 80053; 80061; 81001; 81003; 82550; 82553; 83036; 83615; 83690; 84439; 84443; 84484; 85025; 87086; 87389; 93005; 96361; 96374; 96375; 96376; 99283; G0378; G0480; J2405; J7030; Q9967

== ENCOUNTER 2017-12-21 23:51 | Emergency (ER) | payer SELFPAY ==
[2017-12-22 00:12] VITALS: RESP 18; TEMP 98.5; O2SAT 98
[2017-12-22 00:13] VITALS: BMI 27.3
--- NOTE | 2017-12-22 01:11 | ED PDOC ---
Arrival/HPI - General Chief Complaint: Shortness Of Breath Time Seen by Provider: 12/22/17 00:23 Historian: Patient - History of Present Illness Narrative History of Present Illness (Text): 12/22/17 01:08 A 37 year old female, whose past medical history includes asthma/bronchitis, heart murmur, hypertension, presents to the emergency department with a complaint of chest pain. Patient does not have abdominal pain as reported in the triage notes. She denies fevers, chills, headache, dizziness, shortness of breath, dyspnea on exertion, cough, abdominal pain, nausea, vomiting, diarrhea, back pain, neck pain, urinary/bowel changes, or any other complaint. Time/Duration: Prior to Arrival Symptom Onset: Sudden Symptom Course: Unchanged Activities at Onset: Rest, Light Context: Home Past Medical History - Provider Review Nursing Documentation Reviewed: Yes - Infectious Disease Hx of Infectious Diseases: None - Tetanus Immunization Tetanus Immunization: Unknown - Cardiac Hx Cardiac Disorders: Yes Hx Heart Murmur: Yes - Pulmonary Hx Respiratory Disorders: Yes Hx Asthma: Yes Hx Bronchitis: Yes - Neurological Hx Neurological Disorder: No - HEENT Hx HEENT Disorder: No - Renal Hx Renal Disorder: No - Endocrine/Metabolic Hx Endocrine Disorders: No - Hematological/Oncological Hx Blood Disorders: No - Integumentary Hx Dermatological Disorder: No - Musculoskeletal/Rheumatological Hx Musculoskeletal Disorders: No - Gastrointestinal Hx Gastrointestinal Disorders: No - Genitourinary/Gynecological Hx Genitourinary Disorders: No - Psychiatric Hx Psychophysiologic Disorder: No Hx Substance Use: No - Surgical History Hx Section: Yes - Anesthesia Hx Anesthesia: Yes Hx Anesthesia Reactions: No Hx Malignant Hyperthermia: No - Suicidal Assessment Feels Threatened In Home Enviroment: No Family/Social History - Physician Review Nursing Documentation Reviewed: Yes Family/Social History: No Known Family HX Smoking Status: Light Smoker < 10 Cigarettes Daily Hx Alcohol Use: Yes Frequency of alcohol use: Socially Hx Substance Use: No Allergies/Home Meds Allergies/Adverse Reactions: Allergies beeswax Allergy (Verified 12/22/17 00:12) ITCHING Home Medications: Home Meds Medication Instructions Recorded Confirmed Albuterol 0.083% [Albuterol 0.083% 2.5 mg INH BID PRN 10/11/14 11/30/14 Inhal Ramona (2.5 mg/3 ml) UD] Diphenhydramine Hydrochlorid 25 mg PO BID 11/30/14 11/30/14 [Benadryl] Prednisone 20 mg PO DAILY 11/30/14 11/30/14 Review of Systems - Physician Review All systems were reviewed & negative as marked: Yes - Review of Systems Constitutional: absent: Fevers, Night Sweats Respiratory: absent: SOB, Cough Cardiovascular: Chest Pain. absent: RAMOS Gastrointestinal: absent: Abdominal Pain, Stool Changes, Diarrhea, Nausea, Vomiting Genitourinary Female: absent: Urine Output Changes Musculoskeletal: absent: Back Pain, Neck Pain Neurological: absent: Headache, Dizziness Physical Exam Vital Signs Reviewed: Yes Vital Signs Temp Pulse Resp BP Pulse Ox 12/22/17 07:34 18 98 12/22/17 05:51 79 18 123/75 98 12/22/17 00:15 18 12/22/17 00:12 98.5 F 85 18 148/107 H 98 Temperature: Afebrile Blood Pressure: Hypertensive Pulse: Regular Respiratory Rate: Normal Appearance: Positive for: Well-Appearing, Non-Toxic, Comfortable Pain Distress: None Mental Status: Positive for: Alert and Oriented X 3 - Systems Exam Head: Present: Atraumatic, Normocephalic Pupils: Present: PERRL Extroacular Muscles: Present: EOMI Conjunctiva: Present: Normal Mouth: Present: Moist Mucous Membranes Neck: Present: Normal Range of Motion Respiratory/Chest: Present: Clear to Auscultation, Good Air Exchange. No: Respiratory Distress, Accessory Muscle Use Cardiovascular: Present: Regular Rate and Rhythm, Normal S1, S2. No: Murmurs Abdomen: No: Tenderness, Distention, Peritoneal Signs Back: Present: Normal Inspection Upper Extremity: Present: Normal Inspection. No: Cyanosis, Edema Lower Extremity: Present: Normal Inspection. No: Edema Neurological: Present: GCS=15, CN II-XII Intact, Speech Normal Skin: Present: Warm, Dry, Normal Color. No: Rashes Psychiatric: Present: Alert, Oriented x 3, Normal Insight, Normal Concentration Medical Decision Making ED Course and Treatment: 12/22/17 01:09 Impression: A 37 year old female presents to the emergency department with a complaint of chest pain. Plan: -- EKG -- Reassess and disposition Progress Notes: 12/22/17 01:10 EKG: Ordered, reviewed, and independently interpreted the EKG. Rate : 79 BPM Rhythm : NSR with sinus arrhythmia Interpretation : Septal infarct age undetermined. 12/22/17 02:19: Patient refusing chest x-ray and blood tests. She is resting in no acute distress. Disposition/Present on Arrival - Present on Arrival Any Indicators Present on Arrival: No History of DVT/PE: No History of Uncontrolled Diabetes: No Urinary Catheter: No History of Decub. Ulcer: No History Surgical Site Infection Following: None - Disposition Have Diagnosis and Disposition been Completed?: Yes Diagnosis: Chest pain Disposition: HOME/ ROUTINE Disposition Time: 07:00 Condition: GOOD Discharge Instructions (ExitCare): Chest Pain, Chest Pain (ED) Forms: [facility] (Ukrainian)
[2017-12-22 05:52] VITALS: BP 123/75; PULSE 79
--- NOTE | 2017-12-22 09:21 | CARD ---
APPROVED REPORT Date of service: 12/22/2017 EKG Measurement Heart [id number] <Conclusion> Normal sinus rhythm with sinus arrhythmia Poor R Progression V1-V3.
== END 2017-12-22 07:34 | disposition home or self-care (01) ==
LOC: ED 23:51
DX: R07.9 Chest pain, unspecified (principal); I10 Essential (primary) hypertension; F17.210 Nicotine dependence, cigarettes, uncomplicated

== ENCOUNTER 2017-12-23 12:19 | Emergency (ER) | payer SELFPAY ==
[2017-12-23 12:28] VITALS: BMI 29.7
[2017-12-23 12:30] VITALS: O2SAT 100
--- NOTE | 2017-12-23 12:39 | ED PDOC ---
Arrival/HPI - General Chief Complaint: Cough, Cold, Congestion Time Seen by Provider: 12/23/17 12:21 Historian: Patient - History of Present Illness Narrative History of Present Illness (Text): 12/23/17 12:30 37 year old female, with past medical history of asthma, bronchitis, heart murmur, and hypertension, presents to the emergency department complaining of productive cough since last night. Patient informs white colored phlegm but denies any hemoptysis. Patient denies any fever, chills, nausea, vomiting, diarrhea, abdominal pain, chest pain, shortness of breath, headache, recent travel, sick contact, or any other complaints. Patient denies smoking cigarettes recently. PMD: NONE Time/Duration: 24 hours Symptom Onset: Gradual Symptom Course: Unchanged Activities at Onset: Light Context: Home Past Medical History - Provider Review Nursing Documentation Reviewed: Yes - Infectious Disease Hx of Infectious Diseases: None - Tetanus Immunization Tetanus Immunization: Unknown - Cardiac Hx Cardiac Disorders: Yes Hx Heart Murmur: Yes - Pulmonary Hx Respiratory Disorders: Yes Hx Asthma: Yes Hx Bronchitis: Yes - Neurological Hx Neurological Disorder: No - HEENT Hx HEENT Disorder: No - Renal Hx Renal Disorder: No - Endocrine/Metabolic Hx Endocrine Disorders: No - Hematological/Oncological Hx Blood Disorders: No - Integumentary Hx Dermatological Disorder: No - Musculoskeletal/Rheumatological Hx Musculoskeletal Disorders: No - Gastrointestinal Hx Gastrointestinal Disorders: No - Genitourinary/Gynecological Hx Genitourinary Disorders: No - Psychiatric Hx Psychophysiologic Disorder: No Hx Substance Use: No - Surgical History Hx Section: Yes - Anesthesia Hx Anesthesia: Yes Hx Anesthesia Reactions: No Hx Malignant Hyperthermia: No - Suicidal Assessment Feels Threatened In Home Enviroment: No Family/Social History - Physician Review Nursing Documentation Reviewed: Yes Family/Social History: No Known Family HX Smoking Status: Light Smoker < 10 Cigarettes Daily Hx Alcohol Use: Yes Hx Substance Use: No Allergies/Home Meds Allergies/Adverse Reactions: Allergies beeswax Allergy (Verified 12/22/17 00:12) ITCHING Home Medications: Home Meds Medication Instructions Recorded Confirmed Albuterol 0.083% [Albuterol 0.083% 2.5 mg INH BID PRN 10/11/14 11/30/14 Inhal Ramona (2.5 mg/3 ml) UD] Review of Systems - Physician Review All systems were reviewed & negative as marked: Yes - Review of Systems Constitutional: Normal. absent: Fevers, Night Sweats Eyes: Normal ENT: Normal Respiratory: Cough. absent: SOB Cardiovascular: Normal. absent: Chest Pain Gastrointestinal: Normal. absent: Abdominal Pain, Diarrhea, Nausea, Vomiting, Appetite Changes Genitourinary Female: Normal Musculoskeletal: Normal Skin: Normal Neurological: Normal. absent: Headache Endocrine: Normal Hemo/Lymphatic: Normal Psychiatric: Normal Physical Exam Vital Signs Reviewed: Yes Vital Signs Temp Pulse Resp BP Pulse Ox 12/23/17 14:52 98.9 F 87 17 124/62 100 12/23/17 12:20 99.2 F 90 18 123/51 L 100 Temperature: Afebrile Blood Pressure: Normal Pulse: Regular Respiratory Rate: Normal Appearance: Positive for: Well-Appearing, Non-Toxic, Comfortable Pain Distress: None Mental Status: Positive for: Alert and Oriented X 3 - Systems Exam Head: Present: Atraumatic, Normocephalic Pupils: Present: PERRL Extroacular Muscles: Present: EOMI Conjunctiva: Present: Normal Mouth: Present: Moist Mucous Membranes Neck: Present: Normal Range of Motion Respiratory/Chest: Present: Clear to Auscultation, Good Air Exchange. No: Respiratory Distress, Accessory Muscle Use Cardiovascular: Present: Regular Rate and Rhythm, Normal S1, S2. No: Murmurs Abdomen: No: Tenderness, Distention, Peritoneal Signs Back: Present: Normal Inspection Upper Extremity: Present: Normal Inspection. No: Cyanosis, Edema Lower Extremity: Present: Normal Inspection. No: Edema Neurological: Present: GCS=15, CN II-XII Intact, Speech Normal Skin: Present: Warm, Dry, Normal Color. No: Rashes Psychiatric: Present: Alert, Oriented x 3, Normal Insight Medical Decision Making ED Course and Treatment: 12/23/17 12:27 Impression: 37 year old female presents to the emergency department for productive cough. Plan: --Chest X-ray -- Reassess and disposition Prior Visits: Notes and results from previous visits were reviewed. Progress Notes: - RAD Interpretation Narrative RAD Interpretations (Text): 12/23/17 14:33 Chest X-ray reviewed by radiologist, shows: No active disease. No significant interval change compared to the prior examination(s). Radiology Orders: 12/23/17 12:27 CHEST TWO VIEWS (PA/LAT) [RAD] Stat Special Events Planner: Radiologist - Scribe Statement The provider has reviewed the documentation as recorded by the Scribe James Shipman, adryan with [facility] All medical record entries made by the Scribe were at my direction and personally dictated by me. I have reviewed the chart and agree that the record accurately reflects my personal performance of the history, physical exam, medical decision making, and the department course for this patient. I have also personally directed, reviewed, and agree with the discharge instructions and disposition. Disposition/Present on Arrival - Present on Arrival Any Indicators Present on Arrival: No History of DVT/PE: No History of Uncontrolled Diabetes: No Urinary Catheter: No History of Decub. Ulcer: No History Surgical Site Infection Following: None - Disposition Have Diagnosis and Disposition been Completed?: Yes Diagnosis: Cough Disposition: HOME/ ROUTINE Disposition Time: 14:40 Condition: GOOD Discharge Instructions (ExitCare): Cough, Adult (DC) Additional Instructions: NURY SMITH, thank you for letting us take care of you today. The emergency medical care you received today was directed at your acute symptoms. If you were prescribed any medication, please fill it and take as directed. It may take several days for your symptoms to resolve. Return to the Emergency Department if your symptoms worsen, do not improve, or if you have any other problems. Please contact your doctor or call one of the physicians/clinics you have been referred to that are listed on the Patient Visit Information form that is included in your discharge packet. Bring any paperwork you were given at discharge with you along with any medications you are taking to your follow up visit. Our treatment cannot replace ongoing medical care by a primary care provider outside of the emergency department. Thank you for allowing the [facility] team to be part of your care today. Follow up with the clinic in 3-4 days for re-evaluation and further management. Prescriptions: guaiFENesin [Robitussin] 100 mg PO Q6 PRN #1 bottle PRN Reason: Cough Referrals: [facility] [Outside] - Follow up with primary Jennifer Escamilla MD [Staff Provider] - Follow up with primary Forms: [employer] ([place])
--- NOTE | 2017-12-23 14:24 | RAD ---
Date of service: 12/23/2017 HISTORY: cought r/o infiltrate COMPARISON: 12/05/2017. TECHNIQUE: Chest PA and lateral FINDINGS: LUNGS: No active pulmonary disease. PLEURA: No significant pleural effusion identified. No pneumothorax apparent. CARDIOVASCULAR: No radiographic findings to suggest acute or significant cardiovascular disease. OSSEOUS STRUCTURES: No significant abnormalities. VISUALIZED UPPER ABDOMEN: Normal. OTHER FINDINGS: None. IMPRESSION: No active disease. No significant interval change compared to the prior examination(s).
[2017-12-23 15:16] VITALS: BP 124/62; PULSE 87; RESP 17; TEMP 98.9
== END 2017-12-23 14:52 | disposition home or self-care (01) ==
LOC: ED 12:19
DX: R05 Cough (principal); I10 Essential (primary) hypertension; F17.210 Nicotine dependence, cigarettes, uncomplicated

== ENCOUNTER 2018-01-23 04:29 | Emergency (ER) | payer MEDICAID, OTHER ==
[2018-01-23 04:40] VITALS: BMI 26.6
--- NOTE | 2018-01-23 04:45 | ED PDOC ---
Arrival/HPI - General Chief Complaint: Lower Extremity Problem/Injury Time Seen by Provider: 01/23/18 04:30 Historian: Patient - History of Present Illness Narrative History of Present Illness (Text): 01/23/18 04:44 Ruchi Alan is a 37 year old female, whose past medical history includes asthma, bronchitis, heart murmur, and hypertension, who presents to the Emergency department complaining of rash to her groin, buttocks, and legs for the past few days. Patient reports associated pruritus to the area. Patient denies any fever, chills, nausea, vomiting, or any other complaints. Time/Duration: Other (few days) Symptom Onset: Gradual Symptom Course: Unchanged Activities at Onset: Light Past Medical History - Provider Review Nursing Documentation Reviewed: Yes - Infectious Disease Hx of Infectious Diseases: None - Tetanus Immunization Tetanus Immunization: Unknown - Cardiac Hx Cardiac Disorders: Yes Hx WA: Yes ("slight WA") Hx Heart Murmur: Yes - Pulmonary Hx Asthma: Yes Hx Bronchitis: Yes - Neurological Hx Neurological Disorder: No - HEENT Hx HEENT Disorder: No - Renal Hx Renal Disorder: No - Endocrine/Metabolic Hx Endocrine Disorders: No - Hematological/Oncological Hx Blood Disorders: No - Integumentary Hx Dermatological Disorder: No - Musculoskeletal/Rheumatological Hx Musculoskeletal Disorders: No - Gastrointestinal Hx Gastrointestinal Disorders: No - Genitourinary/Gynecological Hx Genitourinary Disorders: No - Psychiatric Hx Psychophysiologic Disorder: No Hx Substance Use: No - Surgical History Hx Section: Yes - Anesthesia Hx Anesthesia: Yes Hx Anesthesia Reactions: No Hx Malignant Hyperthermia: No - Suicidal Assessment Feels Threatened In Home Enviroment: No Family/Social History - Physician Review Nursing Documentation Reviewed: Yes Family/Social History: Unknown Family HX Smoking Status: Light Smoker < 10 Cigarettes Daily Hx Alcohol Use: Yes Hx Substance Use: No Allergies/Home Meds Allergies/Adverse Reactions: Allergies beeswax Allergy (Verified 01/23/18 04:40) ITCHING Home Medications: Home Meds Medication Instructions Recorded Confirmed No Known Home Med 01/23/18 01/23/18 Review of Systems - Physician Review All systems were reviewed & negative as marked: Yes - Review of Systems Constitutional: Normal. absent: Fevers Eyes: Normal ENT: Normal Respiratory: Normal. absent: SOB, Cough Cardiovascular: Normal. absent: Chest Pain Gastrointestinal: Normal. absent: Abdominal Pain, Diarrhea, Nausea, Vomiting Genitourinary Female: Normal. absent: Dysuria, Frequency, Hematuria, Urine Output Changes Musculoskeletal: Normal. absent: Back Pain, Neck Pain Skin: Rash Neurological: Normal. absent: Headache, Dizziness Endocrine: Normal Hemo/Lymphatic: Normal Psychiatric: Normal Physical Exam Vital Signs Reviewed: Yes Vital Signs Temp Pulse Resp BP Pulse Ox 01/23/18 06:50 82 18 134/77 98 01/23/18 06:30 84 18 132/78 99 01/23/18 04:30 98.1 F 94 H 18 140/87 98 Temperature: Afebrile Blood Pressure: Normal Pulse: Regular Respiratory Rate: Normal Appearance: Positive for: Well-Appearing, Non-Toxic, Comfortable Pain Distress: None Mental Status: Positive for: Alert and Oriented X 3 - Systems Exam Head: Present: Atraumatic, Normocephalic Pupils: Present: PERRL Extroacular Muscles: Present: EOMI Conjunctiva: Present: Normal Mouth: Present: Moist Mucous Membranes Neck: Present: Normal Range of Motion Respiratory/Chest: Present: Clear to Auscultation, Good Air Exchange. No: Respiratory Distress, Accessory Muscle Use Cardiovascular: Present: Regular Rate and Rhythm, Normal S1, S2. No: Murmurs Abdomen: No: Tenderness, Distention, Peritoneal Signs Back: Present: Normal Inspection Upper Extremity: Present: Normal Inspection. No: Cyanosis, Edema Lower Extremity: Present: NORMAL PULSES, Normal ROM, Neurovascularly Intact, Capillary Refill < 2 s. No: Edema, Tenderness, Swelling, Deformity, Temperature Abnormalties Neurological: Present: GCS=15, CN II-XII Intact, Speech Normal Skin: Present: Warm, Dry, Rashes (Fungal rash to groin, buttocks, and legs), Normal Color Psychiatric: Present: Alert, Oriented x 3, Normal Insight, Normal Concentration Medical Decision Making ED Course and Treatment: 01/23/18 04:44 Impression: 37 year old female complaining of a pruritic rash to groin, buttocks, and legs. Plan: -- Lotrimin -- Reassess and disposition Progress Notes: - Medication Orders Current Medication Orders: Discontinued Medications Acetaminophen (Tylenol 325mg Tab) 650 mg PO STAT STA Stop: 01/23/18 06:11 Last Admin: 01/23/18 06:16 Dose: 650 mg MAR Pain/Vitals Document 01/23/18 06:16 AMANDA (Rec: 01/23/18 06:16 AMANDA [id number]) Pain Reassessment Is This A Pain ReAssessment? No Sleep Is patient sleeping during reassessment? No Presence of Pain Presence of Pain Yes Pain Scale Used Pain Scale Used Numeric Location Left, Right or Bilateral Left Pain Location Body Site side Clotrimazole (Lotrimin 1%) 0 gm TOP STAT STA Stop: 01/23/18 05:30 Last Admin: 01/23/18 06:15 Dose: 1 oin - Scribe Statement The provider has reviewed the documentation as recorded by the Scribe Liset Brush All medical record entries made by the Scribe were at my direction and personally dictated by me. I have reviewed the chart and agree that the record accurately reflects my personal performance of the history, physical exam, medical decision making, and the department course for this patient. I have also personally directed, reviewed, and agree with the discharge instructions and disposition. Disposition/Present on Arrival - Present on Arrival Any Indicators Present on Arrival: No History of DVT/PE: No History of Uncontrolled Diabetes: No Urinary Catheter: No History of Decub. Ulcer: No History Surgical Site Infection Following: None - Disposition Have Diagnosis and Disposition been Completed?: Yes Diagnosis: Dermatitis Disposition: HOME/ ROUTINE Disposition Time: 06:30 Condition: GOOD Discharge Instructions (ExitCare): Eczema (Atopic Dermatitis) Referrals: FAMILY PROVIDER,NO [Primary Care Provider] - Follow up with primary Forms: [employer] (Malay)
[2018-01-23 04:51] VITALS: RESP 18; TEMP 98.1; O2SAT 98
[2018-01-23] MEDS ORDERED: Clotrimazole 1% Cream(30 gm) TOP STA (05:29)
[2018-01-23 06:53] VITALS: BP 134/77; PULSE 82
== END 2018-01-23 06:50 | disposition home or self-care (01) ==
LOC: ED 04:29
DX: L30.9 Dermatitis, unspecified (principal); F17.210 Nicotine dependence, cigarettes, uncomplicated; I10 Essential (primary) hypertension

== ENCOUNTER 2018-07-09 00:52 | Emergency (ER) | payer MEDICAID, OTHER ==
[2018-07-09 00:53] VITALS: BMI 26.6
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
[2018-07-09 02:25] VITALS: BP 115/78; PULSE 69; RESP 18; TEMP 97.5; O2SAT 100
== END 2018-07-09 15:30 | disposition left against medical advice (07) ==
LOC: ED 00:52
DX: G89.29 Other chronic pain (principal); M25.552 Pain in left hip; M25.562 Pain in left knee; R07.81 Pleurodynia; F17.210 Nicotine dependence, cigarettes, uncomplicated; I10 Essential (primary) hypertension

== ENCOUNTER 2018-09-17 18:44 | Observation (INO) | payer MEDICAID, OTHER ==
[2018-09-17 18:45] VITALS: BMI 26.6
--- NOTE | 2018-09-17 19:29 | ED PDOC ---
Arrival/HPI - General Historian: Patient - History of Present Illness Narrative History of Present Illness (Text): Patient is a 38 year old A1 female with hypertension, obesity, asthma, previous substance abuse presenting with chief complaint of chest discomfort that radiates to the abdomen and back which began yesterday. Pain is described as a sharp cramping sensation that worsens when lying supine. Pain began at rest and is constant. Patient was recently released from incarceration three days ago. Patient also found out she is last week, however states that she has not been following up with an ob-quality assurance assessor and is unaware of gestational age. Admits to subjective fevers, chills, shortness of breath, nausea. Denies vaginal bleeding, diarrhea, dysuria. Time/Duration: 24 hours Symptom Onset: Sudden Symptom Course: Unchanged Quality: Cramping <Elyssa Duarte - Last Filed: 09/18/18 02:28> <Denver Burgos - Last Filed: 09/18/18 19:19> - General Chief Complaint: Chest Pain Time Seen by Provider: 09/17/18 19:09 Past Medical History - Provider Review Nursing Documentation Reviewed: Yes - Infectious Disease Hx of Infectious Diseases: None - Tetanus Immunization Tetanus Immunization: Unknown - Reproductive Menopause: No - Cardiac Hx Hypertension: Yes - Pulmonary Hx Asthma: Yes Hx Bronchitis: Yes - Neurological Hx Neurological Disorder: No - HEENT Hx HEENT Disorder: No - Renal Hx Renal Disorder: No - Endocrine/Metabolic Hx Endocrine Disorders: No - Hematological/Oncological Hx Blood Disorders: No - Integumentary Hx Dermatological Disorder: No - Musculoskeletal/Rheumatological Hx Musculoskeletal Disorders: No - Gastrointestinal Hx Gastrointestinal Disorders: No - Genitourinary/Gynecological Hx Genitourinary Disorders: No - Psychiatric Hx Psychophysiologic Disorder: No Hx Substance Use: No - Surgical History Hx Section: Yes - Anesthesia Hx Anesthesia: Yes Hx Anesthesia Reactions: No Hx Malignant Hyperthermia: No - Suicidal Assessment Feels Threatened In Home Enviroment: No <Elyssa Duarte - Last Filed: 09/18/18 02:28> Family/Social History Family/Social History: No Known Family HX Smoking Status: Light Smoker < 10 Cigarettes Daily Hx Alcohol Use: Yes Hx Substance Use: Yes Substance used: Promethazine <Elyssa Duarte - Last Filed: 09/18/18 02:28> Allergies/Home Meds <Elyssa Duarte - Last Filed: 09/18/18 02:28> <Denver Burgos - Last Filed: 09/18/18 19:19> Allergies/Adverse Reactions: Allergies beeswax Allergy (Verified 09/18/18 00:46) ITCHING Home Medications: Home Meds Medication Instructions Recorded Confirmed No Known Home Med 09/18/18 09/18/18 Review of Systems - Review of Systems Respiratory: SOB Cardiovascular: Chest Pain Gastrointestinal: Abdominal Pain Genitourinary Female: Normal <Elyssa Duarte - Last Filed: 09/18/18 02:28> - Physician Review All systems were reviewed & negative as marked: Yes <Denver Burgos - Last Filed: 09/18/18 19:19> Physical Exam Vital Signs Reviewed: Yes Vital Signs Temp Pulse Resp BP Pulse Ox 09/17/18 19:05 99.7 F H 85 20 117/68 99 Temperature: Afebrile Blood Pressure: Normal Pulse: Regular Respiratory Rate: Normal Appearance: Positive for: Well-Appearing, Non-Toxic Pain Distress: None Mental Status: Positive for: Alert and Oriented X 3 - Systems Exam Head: Present: Atraumatic, Normocephalic Pupils: Present: PERRL Extroacular Muscles: Present: EOMI Conjunctiva: Present: Normal Respiratory/Chest: Present: Clear to Auscultation, Tender to Palpation. No: Respiratory Distress, Accessory Muscle Use Cardiovascular: Present: Regular Rate and Rhythm, Normal S1, S2. No: Tachycardic Abdomen: Present: Tenderness, Normal Bowel Sounds. No: Distention Lower Extremity: Present: Normal Inspection Neurological: Present: GCS=15, CN II-XII Intact, Speech Normal Skin: Present: Warm, Dry, Normal Color Psychiatric: Present: Alert, Oriented x 3 <Elyssa Duarte - Last Filed: 09/18/18 02:28> Vital Signs Temp Pulse Resp BP Pulse Ox 09/17/18 22:00 85 18 119/66 100 09/17/18 19:05 99.7 F H 85 20 117/68 99 <Denver Burgos - Last Filed: 09/18/18 19:19> Medical Decision Making ED Course and Treatment: Impression: 38 year old female with chest, abdominal, back discomfort Plan: - CBC, CMP - EKG, troponin - Urinalysis, UDS - B-hcg - Reassess and disposition Prior Visits: Notes and results from previous visits were reviewed. Progress Notes: test positive. Will followup transvaginal ultrasound Morphine administered, patient reports improvement in pain Results of transvaginal ultrasound and labs reviewed Patient is hemodynamically stable, accepted for admission into hospitalist service - Lab Interpretations I have reviewed the lab results: Yes <Elyssa Duarte Felicita - Last Filed: 09/18/18 02:28> ED Course and Treatment: Impression: Pt seen and evaluated with biomedical equipment specialist. Aware and agree with HPI, clinical findings, plan, and management. Pt, whose past medical history includes hypertension, obesity, asthma, and substance abuse, P:2 A:1, presented for chest discomfort radiating to abdomen and back. Plan: -- EKG -- Labs, Beta-HCG, troponin -- UA, urine drug screen -- Lidocaine -- Tylenol -- Transvaginal US -- Reassess and disposition Progress Notes: 09/18/18 00:56 Transvaginal US: ENDOMETRIUM: There is a sac like structure within the endometrium which measures 1.9 x 1.1 x 2.6 cm. This has an elongated shape for a gestational sac. Please correlate clinically. Estimated gestational age based on the current measurements is 6.2 weeks. UTERUS/CERVIX: Uterus measures 9.9 x 4.6 x 6.1 cm. Cervix measures 4.3 cm and appears closed. RIGHT OVARY: The right ovary is not adequately visualized. LEFT OVARY: US left ovary measures 3.9 x 2.9 x 3.3 cm. FREE FLUID: No free fluid in the cul de sac. MISCELLANEOUS: No yolk sac is seen. No pole is seen. Per the technologist, the study was limited by poor cooperation of the patient at the time of scanning. IMPRESSION: 1. Uterus measures 9.9 x 4.6 x 6.1 cm. 2. There is a sac like structure within the endometrium which measures 1.9 x 1.1 x 2.6 cm. This has an elongated shape for a gestational sac. Please correlate clinically. Estimated gestational age based on the current measurements is 6.2 weeks. 3. Cervix measures 4.3 cm and appears closed. 4. No yolk sac is seen. 5. No pole is seen. Given the estimated gestational age, this could still be due to the early phase gestation. Alternatively, this could represent a blighted ovum. Consider repeat imaging in 1- 2 weeks if clinically indicated. 6. No free fluid in the cul de sac. 7. Per the technologist, the study was limited by poor cooperation of the patient at the time of scanning. 8. The right ovary is not adequately visualized. 9. US left ovary measures 3.9 x 2.9 x 3.3 cm. Electronically signed on Sep 18, 2018 12:36:15 AM EDT by: Neo Sherman M.D., Certified by ABR, MSK, Neuroradiology 09/18/18 01:25 Case discussed with biomedical equipment specialist marketing communications leader, who is aware and agrees with plan. 09/18/18 01:[address] Garcia, who is aware and agrees with plan. Accepts pt in to hospitalist service. - Lab Interpretations Lab Results: Troponin I < 0.01 ng/mL 09/17/18 19:31 Total Bilirubin 0.2 mg/dL (0.2-1.3) 09/17/18 19:31 AST 25 U/L (14-36) 09/17/18 19:31 ALT 22 U/L (7-56) 09/17/18 19:31 Alkaline Phosphatase 56 U/L (38-126) 09/17/18 19:31 Total Protein 6.8 g/dL (5.8-8.3) 09/17/18 19:31 Albumin 3.8 g/dL (3.0-4.8) 09/17/18 19:31 Globulin 3.0 gm/dL 09/17/18 19:31 Albumin/Globulin Ratio 1.2 (1.1-1.8) 09/17/18 19:31 Urine Color Yellow (YELLOW) 09/17/18 20:00 Urine Appearance Clear (CLEAR) 09/17/18 20:00 Urine pH 6.0 (4.7-8.0) 09/17/18 20:00 Ur Specific [place] 1.025 (1.005-1.035) 09/17/18 20:00 Urine Protein Negative mg/dL (<30 mg/dL) 09/17/18 20:00 Urine Glucose (UA) Negative mg/dL (NEGATIVE) 09/17/18 20:00 Urine Ketones Negative mg/dL (NEGATIVE) 09/17/18 20:00 Urine Blood Negative (NEGATIVE) 09/17/18 20:00 Urine Nitrate Negative (NEGATIVE) 09/17/18 20:00 Urine Bilirubin Negative (NEGATIVE) 09/17/18 20:00 Urine Urobilinogen 0.2 E.U./dL (<1 E.U./dL) 09/17/18 20:00 Ur Leukocyte Esterase Small [place]/uL (NEGATIVE) H 09/17/18 20:00 Urine RBC TEST NOT PERFORMED 09/17/18 20:00 Urine WBC 5 - 10 /hpf (0-6) H 09/17/18 20:00 Ur Epithelial Cells 10 - 12 /hpf (0-5) H 09/17/18 20:00 Urine HCG, Qual Positive (NEGATIVE) 09/17/18 20:00 Beta HCG, Quant 34094.00 mIU/mL (0-6.15) H 09/17/18 20:00 Urine HCG, Qual Positive (NEGATIVE) 09/17/18 20:00 - RAD Interpretation Radiology Orders: 09/17/18 20:10 OB TRANSVAGINAL [US] Stat - Medication Orders Current Medication Orders: Discontinued Medications Acetaminophen (Tylenol 325mg Tab) 650 mg PO STAT STA Stop: 09/17/18 21:03 Last Admin: 09/17/18 21:47 Dose: 650 mg MAR Pain/Vitals Document 09/17/18 21:47 (Rec: 09/17/18 21:48 [id number] Pain Reassessment Is This A Pain ReAssessment? Yes Location Left, Right or Bilateral Left Upper or Lower Upper Pain Location Body Site Back Pain Behavior Moaning Lidocaine (Lidoderm) 1 ea TD ONCE ONE Stop: 09/18/18 21:17 Lidocaine (Lidoderm) 1 ea TD ONCE ONE Stop: 09/17/18 21:24 Last Admin: 09/17/18 21:48 Dose: 1 ea Morphine Sulfate (Morphine) 4 mg IVP STAT STA Stop: 09/17/18 21:36 Last Admin: 09/17/18 21:50 Dose: 4 mg MAR Pain Assessment Document 09/17/18 21:50 RG (Rec: 09/17/18 22:00 [id number] Pain Reassessment Is this a pain reassessment? Yes Sleep Is patient sleeping during reassessment? No Presence of Pain Presence of Pain Yes Location Left, Right or Bilateral Left Pain Location Body Site Breast Chest Abdomen Description Description Intermittent IVP Administration Document 09/17/18 21:50 RG (Rec: 09/17/18 22:00 RG [id number]) Charges for Administration # of IVP Administrations 1 <Denver Burgos - Last Filed: 09/18/18 19:19> - PA / INTERNATIONAL ACCOUNT MANAGER / Resident Statement /DO has reviewed & agrees with the documentation as recorded. / has examined the patient and agrees with the treatment plan. <Denver Burgos - Last Filed: 09/18/18 19:19> Disposition/Present on Arrival - Present on Arrival Any Indicators Present on Arrival: No History of DVT/PE: No History of Uncontrolled Diabetes: No Urinary Catheter: No History of Decub. Ulcer: No History Surgical Site Infection Following: None - Disposition Have Diagnosis and Disposition been Completed?: Yes Disposition Time: 01:56 <Elyssa Duarte - Last Filed: 09/18/18 02:28> <Denver Burgos - Last Filed: 09/18/18 19:19> - Disposition Diagnosis: Abdominal pain Disposition: HOSPITALIZED Patient Problems: Current Active Problems Problem Status Onset Abdominal pain Acute Condition: STABLE
[2018-09-17 19:43] LABS: BASO # 0.01 K/mm3 (0.0-2.0); BASO % 0.1 % (0.0-3.0); EOS # 0.2 (0.0-0.7); EOS % 2.4 % (1.5-5.0); HEMOGLOBIN 10.8 g/dL (12.0-16.0); LYMPH # 2.8 (1.2-3.4); LYMPH % 33.2 % (22.0-35.0); MEAN CELL VOLUME 87.7 fl (80.0-105.0); MEAN CORPUSCULAR HEMOGLOBIN 28.8 pg (25.0-35.0); MEAN CORPUSCULAR HGB CONC 32.8 g/dl (31.0-37.0); MEAN PLATELET VOLUME 9.8 fl (7.0-11.0); MONO # 0.5 (0.1-0.6); RBC 3.75 10^6/uL (3.5-6.1); RED CELL DISTRIBUTION WIDTH 13.7 % (11.5-14.5); WHITE BLOOD COUNT 8.4 10^3/uL (4.5-11.0)
[2018-09-17 19:54] LABS: ALB/GLOB RATIO 1.2 (1.1-1.8); ALBUMIN 3.8 g/dL (3.0-4.8); BLOOD UREA NITROGEN 19 mg/dL (7-21); CALCIUM 9.3 mg/dL (8.4-10.5); GFR NON-AFRICAN AMERICAN > 60
[2018-09-17 19:58] LABS: ALT/SGPT 22 U/L (7-56); AST/SGOT 25 U/L (14-36)
[2018-09-17 20:04] LABS: TROPONIN I < 0.01 ng/mL
[2018-09-17 20:24] LABS: URINE APPEARANCE CLEAR (CLEAR); URINE BILIRUBIN NEGATIVE (NEGATIVE); URINE BLOOD NEGATIVE (NEGATIVE); URINE COLOR YELLOW (YELLOW); URINE GLUCOSE (UA) NEGATIVE (NEGATIVE); URINE LEUKOCYTE ESTERASE SMALL Leu/uL (NEGATIVE); URINE PROTEIN NEGATIVE mg/dL (<30 mg/dL); URINE UROBILINOGEN 0.2 E.U./dL (<1 E.U./dL)
[2018-09-17 20:27] LABS: HCG,QUALITATIVE URINE POSITIVE (NEGATIVE)
[2018-09-17 21:01] LABS: BARBITURATES, UR NEGATIVE (NEGATIVE); BENZODIAZEPINES, UR NEGATIVE (NEGATIVE); OPIATES, UR NEGATIVE (NEGATIVE); PHENCYCLIDINE, UR POSITIVE (NEGATIVE)
[2018-09-17] MEDS ORDERED: Lidocaine 5% Patch TD ONE (21:23)
[2018-09-17] MEDS ORDERED: Morphine 4 mg/ml ISec IVP STA (21:35)
[2018-09-17] MEDS ORDERED: Morphine 2 mg/ml ISec IVP PRN (23:05)
[2018-09-17] MEDS ORDERED: Morphine 2 mg/ml ISec IVP STA (23:06)
[2018-09-17] MEDS ORDERED: Morphine 2 mg/ml ISec ONE (23:10)
--- NOTE | 2018-09-18 01:42 | CP.PCM.HP ---
<Jono Cardona - Last Filed: 09/18/18 02:52> History of Present Illness - History of Present Illness History of Present Illness: PGY1 Medicine History and Physical Exam Note for Dr. Garcia Patient is a 37-year-old F P:2 A:1 with PMH asthma/bronchitis, heart m urmur, previous substance abuse presents to [facility] ED with chest pain localized to the left chest that began yesterday. Of note, Patient is a poor historian. Patient describes the pain as radiating to the abdomen and back, sharp/ cramping that is worse when laying supine. Patient states the pain is constant. Patient says she found out she is last week. Patient was recently released from incarceration three days ago. Patient denies being seen by OBGYN. Patient says she does not know LMP. Patient admits to fever, chills, shortness of breath, and nausea. Patient otherwise denies vaginal bleeding, diarrhea, dysuria, headache,and/or dizziness. PMH: asthma/bronchitis, heart murmur, previous substance abuse PSH: section x2 Allergies: Beeswax Meds: Albuterol inhaler Social Hx: Admits to smoking cigarettes (unknown amount), drinks alcohol during the weekend, denies drugs use Family Hx: Denies Present on Admission - Present on Admission Any Indicators Present on Admission: No History of DVT/PE: No History of Uncontrolled Diabetes: No Urinary Catheter: No Decubitus Ulcer Present: No Review of Systems - Review of Systems All systems: reviewed and no additional remarkable complaints except (as per HPI) Past Patient History - Infectious Disease Hx of Infectious Diseases: None - Tetanus Immunizations Tetanus Immunization: Unknown - Past Social History Smoking Status: Light Smoker < 10 Cigarettes Daily - CARDIAC Hx Hypertension: Yes - PULMONARY Hx Asthma: Yes Hx Bronchitis: Yes - NEUROLOGICAL Hx Neurological Disorder: No - HEENT Hx HEENT Problems: No - RENAL Hx Chronic Kidney Disease: No - ENDOCRINE/METABOLIC Hx Endocrine Disorders: No - HEMATOLOGICAL/ONCOLOGICAL Hx Blood Disorders: No - INTEGUMENTARY Hx Dermatological Problems: No - MUSCULOSKELETAL/RHEUMATOLOGICAL Hx Musculoskeletal Disorders: No - GASTROINTESTINAL Hx Gastrointestinal Disorders: No - GENITOURINARY/GYNECOLOGICAL Hx Genitourinary Disorders: No - PSYCHIATRIC Hx Psychophysiologic Disorder: No Hx Substance Use: Yes - SURGICAL HISTORY Hx Section: Yes - ANESTHESIA Hx Anesthesia: Yes Hx Anesthesia Reactions: No Hx Malignant Hyperthermia: No Meds Allergies/Adverse Reactions: Allergies Allergy/AdvReac Type Severity Reaction Status Date / Time beeswax Allergy ITCHING Verified 09/18/18 00:46 Physical Exam - Constitutional Appears: Non-toxic, No Acute Distress - Head Exam Head Exam: ATRAUMATIC, NORMAL INSPECTION, NORMOCEPHALIC - Eye Exam Eye Exam: EOMI, Normal appearance - ENT Exam ENT Exam: Mucous Membranes Moist - Neck Exam Neck exam: Positive for: Normal Inspection - Respiratory Exam Respiratory Exam: NORMAL BREATHING PATTERN - Cardiovascular Exam Cardiovascular Exam: REGULAR RHYTHM - GI/Abdominal Exam GI & Abdominal Exam: Normal Bowel Sounds, Soft, Tenderness. absent: Distended - Back Exam Back exam: FULL ROM - Neurological Exam Neurological exam: Alert, Oriented x3 - Psychiatric Exam Psychiatric exam: Agitated Results - Vital Signs Recent Vital Signs: Last Vital Signs Temp 99.4 F 09/18/18 00:43 Pulse 75 09/18/18 00:43 Resp 20 09/18/18 00:43 BP 113/57 L 09/18/18 00:43 Pulse Ox 100 09/18/18 00:43 - Labs Result Diagrams: 09/17/18 19:31 09/17/18 19:31 Labs: Laboratory Results - last 24 hr 09/17/18 09/17/18 09/17/18 19:31 19:31 20:00 WBC 8.4 RBC 3.75 Hgb 10.8 L Hct 32.9 L MCV 87.7 MCH 28.8 MCHC 32.8 RDW 13.7 Plt Count 303 MPV 9.8 Neut % (Auto) 58.3 Lymph % (Auto) 33.2 Woods % (Auto) 6.0 Eos % (Auto) 2.4 Baso % (Auto) 0.1 Lymph # (Auto) 2.8 Woods # (Auto) 0.5 Eos # (Auto) 0.2 Baso # (Auto) 0.01 Absolute Neuts (auto) 4.92 Sodium 134 Potassium 3.8 Chloride 100 Carbon Dioxide 27 Anion Gap 11 BUN 19 Creatinine 0.8 Est GFR ( Amer) > 60 Est GFR (Non-Af Amer) > 60 Random Glucose 84 Calcium 9.3 Phosphorus 4.3 Magnesium 1.6 L Total Bilirubin 0.2 AST 25 ALT 22 Alkaline Phosphatase 56 Troponin I < 0.01 Total Protein 6.8 Albumin 3.8 Globulin 3.0 Albumin/Globulin Ratio 1.2 Beta HCG, Quant Urine Color Yellow Urine Appearance Clear Urine pH 6.0 Ur Specific [place] 1.025 Urine Protein Negative Urine Glucose (UA) Negative Urine Ketones Negative Urine Blood Negative Urine Nitrate Negative Urine Bilirubin Negative Urine Urobilinogen 0.2 Ur Leukocyte Esterase Small H Urine RBC TEST NOT PERFORMED Urine WBC 5 - 10 H Ur Epithelial Cells 10 - 12 H Urine HCG, Qual Positive Urine Opiates Screen Urine Methadone Screen Ur Barbiturates Screen Ur Phencyclidine Scrn Ur Amphetamines Screen U Benzodiazepines Scrn U Oth Cocaine Metabols U Cannabinoids Screen 09/17/18 09/17/18 20:00 20:00 WBC RBC Hgb Hct MCV MCH MCHC RDW Plt Count MPV Neut % (Auto) Lymph % (Auto) Woods % (Auto) Eos % (Auto) Baso % (Auto) Lymph # (Auto) [place] # (Auto) Eos # (Auto) Baso # (Auto) Absolute Neuts (auto) Sodium Potassium Chloride Carbon Dioxide Anion Gap BUN Creatinine Est GFR ( Amer) Est GFR (Non-Af Amer) Random Glucose Calcium Phosphorus Magnesium Total Bilirubin AST ALT Alkaline Phosphatase Troponin I Total Protein Albumin Globulin Albumin/Globulin Ratio Beta HCG, Quant 46834.00 H Urine Color Urine Appearance Urine pH Ur Specific [place] Urine Protein Urine Glucose (UA) Urine Ketones Urine Blood Urine Nitrate Urine Bilirubin Urine Urobilinogen Ur Leukocyte Esterase Urine RBC Urine WBC Ur Epithelial Cells Urine HCG, Qual Urine Opiates Screen Negative Urine Methadone Screen Negative Ur Barbiturates Screen Negative Ur Phencyclidine Scrn Positive H Ur Amphetamines Screen Negative U Benzodiazepines Scrn Negative U Oth Cocaine Metabols Negative U Cannabinoids Screen Negative Assessment & Plan - Assessment and Plan (Free Text) Assessment: L-Sided Chest Pain; Rule-out ACS - Troponin I - Troponin Q6H x2 - F/U EKG - F/U EKG Q6H x2 - UDS positive for PCP Abdominal Pain in the setting of positive beta-hcg - CBC, CMP - Urinalysis - Positive beta-Hcg 28,696 - NPO - IVF NS @ 100cc/hr - Tylenol PRN for pain - Transvaginal U/S: IMPRESSION: There is a sac like structure within the endometrium which measures 1.9 x 1.1 x 2.6 cm. This has an elongated shape for a gestational sac. Please correlate clinically. Estimated gestational age based on the current measurements is 6.2 weeks. Cervix measures 4.3 cm and appears closed. No yolk sac is seen. No pole is seen. Given the estimated gestational age, this could still be due to the early phase gestation. (see official report) - Avoid teratogenic agents History of Substance Abuse - UDS: positive for PCP - Urinalysis Hypomagnesemia - Mg 1.6 - Replete as needed - Monitor CMP PPx - DVT: SCD - GI: pepcid 20mg po daily Discussed with Dr. Jose Cardona PGY1 <Phil Garcia - Last Filed: 09/18/18 04:38> Results - Vital Signs Recent Vital Signs: Last Vital Signs Temp 99.2 F 09/18/18 02:45 Pulse 70 09/18/18 02:45 Resp 18 09/18/18 02:45 BP 118/60 09/18/18 02:45 Pulse Ox 100 09/18/18 02:45 - Labs Result Diagrams: 09/17/18 19:31 09/17/18 19:31 Labs: Laboratory Results - last 24 hr 09/17/18 09/17/18 09/17/18 19:31 19:31 20:00 WBC 8.4 RBC 3.75 Hgb 10.8 L Hct 32.9 L MCV 87.7 MCH 28.8 MCHC 32.8 RDW 13.7 Plt Count 303 MPV 9.8 Neut % (Auto) 58.3 Lymph % (Auto) 33.2 [place] % (Auto) 6.0 Eos % (Auto) 2.4 Baso % (Auto) 0.1 Lymph # (Auto) 2.8 [place] # (Auto) 0.5 Eos # (Auto) 0.2 Baso # (Auto) 0.01 Absolute Neuts (auto) 4.92 Sodium 134 Potassium 3.8 Chloride 100 Carbon Dioxide 27 Anion Gap 11 BUN 19 Creatinine 0.8 Est GFR ( Amer) > 60 Est GFR (Non-Af Amer) > 60 Random Glucose 84 Calcium 9.3 Phosphorus 4.3 Magnesium 1.6 L Total Bilirubin 0.2 AST 25 ALT 22 Alkaline Phosphatase 56 Troponin I < 0.01 Total Protein 6.8 Albumin 3.8 Globulin 3.0 Albumin/Globulin Ratio 1.2 Beta HCG, Quant Urine Color Yellow Urine Appearance Clear Urine pH 6.0 Ur Specific [place] 1.025 Urine Protein Negative Urine Glucose (UA) Negative Urine Ketones Negative Urine Blood Negative Urine Nitrate Negative Urine Bilirubin Negative Urine Urobilinogen 0.2 Ur Leukocyte Esterase Small H Urine RBC TEST NOT PERFORMED Urine WBC 5 - 10 H Ur Epithelial Cells 10 - 12 H Urine HCG, Qual Positive Urine Opiates Screen Urine Methadone Screen Ur Barbiturates Screen Ur Phencyclidine Scrn Ur Amphetamines Screen U Benzodiazepines Scrn U Oth Cocaine Metabols U Cannabinoids Screen 09/17/18 09/17/18 20:00 20:00 WBC RBC Hgb Hct MCV MCH MCHC RDW Plt Count MPV Neut % (Auto) Lymph % (Auto) [place] % (Auto) Eos % (Auto) Baso % (Auto) Lymph # (Auto) [place] # (Auto) Eos # (Auto) Baso # (Auto) Absolute Neuts (auto) Sodium Potassium Chloride Carbon Dioxide Anion Gap BUN Creatinine Est GFR ( Amer) Est GFR (Non-Af Amer) Random Glucose Calcium Phosphorus Magnesium Total Bilirubin AST ALT Alkaline Phosphatase Troponin I Total Protein Albumin Globulin Albumin/Globulin Ratio Beta HCG, Quant 20864.00 H Urine Color Urine Appearance Urine pH Ur Specific [place] Urine Protein Urine Glucose (UA) Urine Ketones Urine Blood Urine Nitrate Urine Bilirubin Urine Urobilinogen Ur Leukocyte Esterase Urine RBC Urine WBC Ur Epithelial Cells Urine HCG, Qual Urine Opiates Screen Negative Urine Methadone Screen Negative Ur Barbiturates Screen Negative Ur Phencyclidine Scrn Positive H Ur Amphetamines Screen Negative U Benzodiazepines Scrn Negative U Oth Cocaine Metabols Negative U Cannabinoids Screen Negative Attending/Attestation - Attestation I have personally seen and examined this patient.: Yes I have fully participated in the care of the patient.: Yes I have reviewed all pertinent clinical information: Yes Notes (Text): 09/18/18 04:34 Patient was seen when she was in ER cubicle # 6. Patient irritable, did not answer questions well. Medical record was reviewed. Agree with history,physical examination,assessment and plan.
[2018-09-18] MEDS ORDERED: Morphine 2 mg/ml ISec IVP STA (02:05)
[2018-09-18] MEDS ORDERED: Magnesium Sulfate 1 gm in D5W 1 GM/100 ML BAG IVPB ONE (03:05)
[2018-09-18] MEDS ORDERED: Albuterol-Ipratrop 3 mg / 0.5 (3 ml) UD IH PRN (03:06)
[2018-09-18] MEDS: Sodium Chloride 0.9% 1,000 ML IV SCH (04:06)
[2018-09-18 04:35] VITALS: RESP 20
--- NOTE | 2018-09-18 16:21 | US ---
Date of service: 09/17/2018 PROCEDURE: OB Pelvic Ultrasound HISTORY: Abdominal pain LMP: Not available COMPARISON: None available. FINDINGS: UTERUS: Gestational sac: Single intrauterine gestation MSD = 1.9 cm = 6 weeks 2 days Yolk sac: Not visualized pole: Not visualized Heart rate: No heart rate detected... age (Ultrasound estimated): Maria Fernanda-gestational hemorrhage: None. Date of delivery (Ultrasound estimated) : Uterus measures 9.9 x 4.6 x6 0.1 cm. Normal in size and appearance. CERVIX: Measures 4.3 cm. Long and closed. No cervical abnormality seen. RIGHT OVARY: Not visualized LEFT OVARY: Measures 3.9 x 2.9 x 3.3 cm. No solid mass. Normal flow. . Small cyst measuring 1.8 x 1.5 x 1.5 cm FREE FLUID: No free fluid. OTHER FINDINGS: None. IMPRESSION: There is a small amount of fluid within the endometrial canal that may represent a gestational sac however this does not contain a yolk sac or pole. Findings could represent blighted ovum however possibility of ectopic not excluded. Follow-up serial serum beta hCGs and serial ultrasound recommended. Small left adnexal cyst. Right ovary not visualized
[2018-09-18] MEDS ORDERED: Lidocaine 5% Patch TD ONE (21:16)
--- NOTE | 2018-09-19 07:18 | CARD ---
APPROVED REPORT Date of service: 09/17/2018 EKG Measurement Heart [id number] MD [id number] <Conclusion> Normal sinus rhythm Normal ECG
[2018-09-19 07:51] VITALS: BP 103/61; PULSE 71; TEMP 98.2; O2SAT 100
--- NOTE | 2018-09-19 08:51 | CARD ---
APPROVED REPORT Date of service: 09/18/2018 EKG Measurement Heart [id number] MD [id number] <Conclusion> Normal sinus rhythm Normal ECG
[2018-09-19] MEDS: Sodium Chloride 0.9% 1,000 ML IV SCH (09:58)
[2018-09-19 10:48] LABS: BASO # 0.02 K/mm3 (0.0-2.0); BASO % 0.3 % (0.0-3.0); EOS # 0.2 (0.0-0.7); EOS % 2.1 % (1.5-5.0); HEMOGLOBIN 11.7 g/dL (12.0-16.0); LYMPH # 2.2 (1.2-3.4); LYMPH % 29.2 % (22.0-35.0); MEAN CELL VOLUME 86.3 fl (80.0-105.0); MEAN CORPUSCULAR HEMOGLOBIN 28.6 pg (25.0-35.0); MEAN CORPUSCULAR HGB CONC 33.1 g/dl (31.0-37.0); MEAN PLATELET VOLUME 9.9 fl (7.0-11.0); MONO # 0.5 (0.1-0.6); MONO % 6.5 % (1.0-6.0); RBC 4.09 10^6/uL (3.5-6.1); RED CELL DISTRIBUTION WIDTH 13.6 % (11.5-14.5); WHITE BLOOD COUNT 7.7 10^3/uL (4.5-11.0)
[2018-09-19 11:04] LABS: ALB/GLOB RATIO 1.2 (1.1-1.8); ALBUMIN 3.7 g/dL (3.0-4.8); ALT/SGPT 22 U/L (7-56); AST/SGOT 21 U/L (14-36); BLOOD UREA NITROGEN 11 mg/dL (7-21); CALCIUM 9.1 mg/dL (8.4-10.5); GFR NON-AFRICAN AMERICAN > 60; IRON 85 ug/dL (45-180)
[2018-09-19 11:13] LABS: % IRON SATURATION 21 % (20-55); TOTAL IRON BINDING CAPACITY 411 ug/dL (265-497)
--- NOTE | 2018-09-19 13:37 | CP.PCM.PN ---
Subjective - Date & Time of Evaluation Date of Evaluation: 09/19/18 Time of Evaluation: 11:00 - Subjective Subjective: INTERNAL MEDICINE PROGRESS NOTE FOR DR. IASC Gresham PGY1 Pt seen and examined at bedside this. Pt has been refusing bloodwork and pain medications overnight until she receives meals. Pt seen sleeping and resting comfortably prior to interview. She complains of diffuse, non-specific pain, however doesn't describe pain and refuses to provide further details of pain. She denies associated symptoms of fevers, chills, headache, dizziness, chest pain, palpitations, shortness of breath, nausea, vomiting, constipation, diarrhea, dysuria, lochia, vaginal discharge, hematochezia. Objective - Vital Signs/Intake and Output Vital Signs (last 24 hours): Temp Pulse Resp BP Pulse Ox 98.2 F 71 20 103/61 100 09/19/18 07:51 09/19/18 07:51 09/19/18 07:51 09/19/18 07:51 09/19/18 07:51 Intake and Output: 09/19/18 09/19/18 06:59 18:59 Intake Total 0 Balance 0 - Medications Medications: Current Medications Acetaminophen (Tylenol 325mg Tab) 650 mg PO Q6H PRN PRN Reason: Pain, moderate (4-7) Last Admin: 09/18/18 18:59 Dose: 650 mg Albuterol/Ipratropium (Duoneb 3 Mg/0.5 Mg (3 Ml) Ud) 3 ml IH Q6H PRN PRN Reason: Shortness of Breath Amoxicillin (Amoxil 500 Mg Cap) 500 mg PO Q8 AMIRA; Protocol Last Admin: 09/19/18 09:58 Dose: 500 mg Sodium Chloride (Sodium Chloride 0.9%) 1,000 mls @ 100 mls/hr IV .Q10H AMIRA Last Admin: 09/19/18 09:58 Dose: Not Given - Labs Labs: 09/19/18 10:30 09/19/18 10:30 - Constitutional Appears: Well, Non-toxic, No Acute Distress - Head Exam Head Exam: NORMAL INSPECTION, NORMOCEPHALIC - Eye Exam Eye Exam: EOMI, Normal appearance - ENT Exam ENT Exam: Mucous Membranes Moist, Normal Exam - Neck Exam Neck Exam: Normal Inspection - Respiratory Exam Respiratory Exam: Clear to Ausculation Bilateral, NORMAL BREATHING PATTERN - Cardiovascular Exam Cardiovascular Exam: REGULAR RHYTHM, +S1, +S2 - GI/Abdominal Exam GI & Abdominal Exam: Soft, Tenderness, Normal Bowel Sounds. absent: Distended, Rigid, Rebound - Extremities Exam Extremities Exam: Normal Inspection. absent: Calf Tenderness - Back Exam Back Exam: NORMAL INSPECTION - Neurological Exam Neurological Exam: Alert, Awake, Oriented x3 - Psychiatric Exam Psychiatric exam: Normal Affect, Normal Mood - Skin Skin Exam: Dry, Intact, Warm Assessment and Plan - Assessment and Plan (Free Text) Assessment: 38 y/o [id number] with PMH asthma, bronchitis with unknown LMP, IUP presents to [facility] with complaints of non-specific chest pain and non-specific abdominal pain. Pt was asleep, resting comfortably prior to interview. Plan: Abdominal Pain Pt is with IUP Chest Pain, r/o ACS EKG NSR with HR 76, No acute ST/T wave changes Troponins (-)
--- NOTE | 2018-09-19 17:23 | CP.PCM.DIS ---
<Abby Gresham - Last Filed: 09/19/18 17:27> Provider - Provider Date of Admission: 09/19/18 10:00 Attending physician: Rios Montes MD Consults: 09/19/18 07:58 Consult [Physician Consult] Routine Comment: Consulting Provider: Naty Manuel Consulting Physician: Naty Manuel Reason for Consult: Early /possible ectopic Time Spent in preparation of Discharge (in minutes): 45 Diagnosis - Discharge Diagnosis (1) Intrauterine Status: Acute (2) Urinary tract infection affecting care of mother in first trimester, antepartum Status: Acute (3) Malingering Status: Acute Hospital Course - Lab Results Lab Results: Micro Results 09/17/18 20:10 Urine,Clean Catch Urine Culture - Final No Growth (<1,000 CFU/ML) Most Recent Lab Values WBC 7.7 10^3/uL (4.5-11.0) 09/19/18 10:30 RBC 4.09 10^6/uL (3.5-6.1) 09/19/18 10:30 Hgb 11.7 g/dL (12.0-16.0) L 09/19/18 10:30 Hct 35.3 % (36.0-48.0) L 09/19/18 10:30 MCV 86.3 fl (80.0-105.0) 09/19/18 10:30 MCH 28.6 pg (25.0-35.0) 09/19/18 10:30 MCHC 33.1 g/dl (31.0-37.0) 09/19/18 10:30 RDW 13.6 % (11.5-14.5) 09/19/18 10:30 Plt Count 306 10^3/uL (120.0-450.0) 09/19/18 10:30 MPV 9.9 fl (7.0-11.0) 09/19/18 10:30 Neut % (Auto) 61.9 % (50.0-68.0) 09/19/18 10:30 Lymph % (Auto) 29.2 % (22.0-35.0) 09/19/18 10:30 Republic % (Auto) 6.5 % (1.0-6.0) H 09/19/18 10:30 Eos % (Auto) 2.1 % (1.5-5.0) 09/19/18 10:30 Baso % (Auto) 0.3 % (0.0-3.0) 09/19/18 10:30 Lymph # (Auto) 2.2 (1.2-3.4) 09/19/18 10:30 Republic # (Auto) 0.5 (0.1-0.6) 09/19/18 10:30 Eos # (Auto) 0.2 (0.0-0.7) 09/19/18 10:30 Baso # (Auto) 0.02 K/mm3 (0.0-2.0) 09/19/18 10:30 Absolute Neuts (auto) 4.74 (1.4-6.5) 09/19/18 10:30 Sodium 134 mmol/L (132-148) 09/19/18 10:30 Potassium 3.8 mmol/L (3.6-5.0) 09/19/18 10:30 Chloride 103 mmol/L (98-107) 09/19/18 10:30 Carbon Dioxide 24 mmol/L (21-33) 09/19/18 10:30 Anion Gap 12 (10-20) 09/19/18 10:30 BUN 11 mg/dL (7-21) 09/19/18 10:30 Creatinine 0.6 mg/dl (0.7-1.2) L 09/19/18 10:30 Est GFR ( Amer) > 60 09/19/18 10:30 Est GFR (Non-Af Amer) > 60 09/19/18 10:30 Random Glucose 116 mg/dL (70-110) H 09/19/18 10:30 Calcium 9.1 mg/dL (8.4-10.5) 09/19/18 10:30 Phosphorus 4.3 mg/dL (2.5-4.5) 09/17/18 19:31 Magnesium 1.6 mg/dL (1.7-2.2) L 09/17/18 19:31 Iron 85 ug/dL (45-180) 09/19/18 10:30 TIBC 411 ug/dL (265-497) 09/19/18 10:30 % Saturation 21 % (20-55) 09/19/18 10:30 Ferritin 21.1 ng/mL 09/19/18 10:30 Total Bilirubin 0.1 mg/dL (0.2-1.3) L 09/19/18 10:30 AST 21 U/L (14-36) 09/19/18 10:30 ALT 22 U/L (7-56) 09/19/18 10:30 Alkaline Phosphatase 49 U/L (38-126) 09/19/18 10:30 Troponin I < 0.01 ng/mL 09/17/18 19:31 Total Protein 6.7 g/dL (5.8-8.3) 09/19/18 10:30 Albumin 3.7 g/dL (3.0-4.8) 09/19/18 10:30 Globulin 3.1 gm/dL 09/19/18 10:30 Albumin/Globulin Ratio 1.2 (1.1-1.8) 09/19/18 10:30 Beta HCG, Quant 98700.00 mIU/mL (0-6.15) H 09/19/18 10:30 Urine Color Yellow (YELLOW) 09/17/18 20:00 Urine Appearance Clear (CLEAR) 09/17/18 20:00 Urine pH 6.0 (4.7-8.0) 09/17/18 20:00 Ur Specific Celina 1.025 (1.005-1.035) 09/17/18 20:00 Urine Protein Negative mg/dL (<30 mg/dL) 09/17/18 20:00 Urine Glucose (UA) Negative mg/dL (NEGATIVE) 09/17/18 20:00 Urine Ketones Negative mg/dL (NEGATIVE) 09/17/18 20:00 Urine Blood Negative (NEGATIVE) 09/17/18 20:00 Urine Nitrate Negative (NEGATIVE) 09/17/18 20:00 Urine Bilirubin Negative (NEGATIVE) 09/17/18 20:00 Urine Urobilinogen 0.2 E.U./dL (<1 E.U./dL) 09/17/18 20:00 Ur Leukocyte Esterase Small Heather/uL (NEGATIVE) H 09/17/18 20:00 Urine RBC TEST NOT PERFORMED 09/17/18 20:00 Urine WBC 5 - 10 /hpf (0-6) H 09/17/18 20:00 Ur Epithelial Cells 10 - 12 /hpf (0-5) H 09/17/18 20:00 Urine HCG, Qual Positive (NEGATIVE) 09/17/18 20:00 Urine Opiates Screen Negative (NEGATIVE) 09/17/18 20:00 Urine Methadone Screen Negative (NEGATIVE) 09/17/18 20:00 Ur Barbiturates Screen Negative (NEGATIVE) 09/17/18 20:00 Ur Phencyclidine Scrn Positive (NEGATIVE) H 09/17/18 20:00 Ur Amphetamines Screen Negative (NEGATIVE) 09/17/18 20:00 U Benzodiazepines Scrn Negative (NEGATIVE) 09/17/18 20:00 U Oth Cocaine Metabols Negative (NEGATIVE) 09/17/18 20:00 U Cannabinoids Screen Negative (NEGATIVE) 09/17/18 20:00 - Hospital Course Hospital Course: Upon Admission: 37-year-old F P:2 A:1 with PMH asthma/bronchitis, heart murmur, previous substance abuse [place] [facility] [place] with atypical chest pain, non-specific chest pain, and non-specific abdominal pain. No lochia, vaginal discharge, gush of fluid, contractions. Hospital Course: Upon interview, pt was seen sleeping and resting comfortably. She appeared in no apparent distress. Per nursing staff, patient was tolerating diet, and requesting multiple trays of food. Pt was refusing tylenol medication until food was given. Pt was refusing diagnostic imaging and blood work, without appropriate reasoning. Pt was counselled on the requirement of B-hcg and serial OB ultrasounds several times, however pt continually refused exams. Upon int erview, pt reported diffuse non-specific tenderness to abdomen. Pt appeared to demonstrate malingering behavior as pt has secondary gain given she lives in long term home. lecturer of portuguese was consulted on case. lecturer of portuguese reviewed case and reported case "does not appear to be ectopic ." Instructions were given for follow-up OB ultrasound and B-hcg in 48 hours from admission. Pt given instructions to follow-up outpatient. Utox: (+) PCP Quant B-hc, 05460 U/A: Small amount of leukocyte esterase, 10-12 epithelial cells Uhcg: (+) Ob Ultrasound: There is a small amount of fluid within the endometrial canal that may represent a gestational sac however this does not contain a yolk sac or pole. Findings could represent blighted ovum however possibility of ectopic not excluded. Follow-up serial serum beta hCGs and serial ultrasound recommended. Small left adnexal cyst. Right ovary not visualized Upon Discharge: Pt is doing better. She denies vaginal discharge. She is denying complaints, and request food tray. Vital signs stable. Labs wnl. She was educated on medication compliance, outpatient followup with specialist, outpatient followup with PMD and to return to ED if symptoms return or she experiences new symptoms. Discharge Exam - Head Exam Head Exam: ATRAUMATIC, NORMAL INSPECTION, NORMOCEPHALIC - Eye Exam Eye Exam: EOMI, Normal appearance - ENT Exam ENT Exam: Mucous Membranes Moist, Normal Exam - Neck Exam Neck exam: Normal Inspection - Respiratory Exam Respiratory Exam: NORMAL BREATHING PATTERN, UNREMARKABLE - Cardiovascular Exam Cardiovascular Exam: REGULAR RHYTHM, +S1, +S2 - GI/Abdominal Exam GI & Abdominal Exam: Soft. absent: Tenderness - Extremities Exam Extremities exam: normal inspection - Back Exam Back exam: NORMAL INSPECTION - Neurological Exam Neurological exam: Alert, Oriented x3 - Psychiatric Exam Psychiatric exam: Normal Affect, Normal Mood - Skin Skin Exam: Dry, Intact, Warm Discharge Plan - Discharge Medications Prescriptions: Amoxicillin [Amoxil 500 mg Cap] 500 mg PO TID #24 cap - Follow Up Plan Condition: STABLE Disposition: HOME/ ROUTINE Instructions: Viral Gastroenteritis, Adult (DC), - The First Month, Urinary Tract Infection in Women (DC), Dysuria (GEN) Additional Instructions: Please follow up with your primary care doctor within 1 week of discharge from the hospital Please follow up with your logistics service representative within 3-5 days of discharge from the hospital. Please discuss routine care with your primary care doctor as well as your project planner You have been given prescriptions to obtain a repeat OB ultrasound and repeat B- hcg levels. Please visit the nearest hospital or project planner to obtain these diagnostic tests. You have been given a prescription for Amoxicillin 500mg. Please take this medications three times a day for 8 days. Please follow the directions written on the prescription bottle If your symptoms return, or you experience new symptoms, please return to the nearest emergency room Referrals: Christina Nunez MD [Medical Doctor] - <Rios Montes - Last Filed: 09/20/18 13:28> Provider - Provider Date of Admission: 09/18/18 01:56 Attending physician: Rios Montes MD Consults: 09/19/18 07:58 Consult [Physician Consult] Routine Comment: Consulting Provider: Naty Manuel Consulting Physician: Naty Manuel Reason for Consult: Early /possible ectopic Hospital Course - Lab Results Lab Results: Micro Results 09/17/18 20:10 Urine,Clean Catch Urine Culture - Final No Growth (<1,000 CFU/ML) Most Recent Lab Values WBC 7.7 10^3/uL (4.5-11.0) 09/19/18 10:30 RBC 4.09 10^6/uL (3.5-6.1) 09/19/18 10:30 Hgb 11.7 g/dL (12.0-16.0) L 09/19/18 10:30 Hct 35.3 % (36.0-48.0) L 09/19/18 10:30 MCV 86.3 fl (80.0-105.0) 09/19/18 10:30 MCH 28.6 pg (25.0-35.0) 09/19/18 10:30 MCHC 33.1 g/dl (31.0-37.0) 09/19/18 10:30 RDW 13.6 % (11.5-14.5) 09/19/18 10:30 Plt Count 306 10^3/uL (120.0-450.0) 09/19/18 10:30 MPV 9.9 fl (7.0-11.0) 09/19/18 10:30 Neut % (Auto) 61.9 % (50.0-68.0) 09/19/18 10:30 Lymph % (Auto) 29.2 % (22.0-35.0) 09/19/18 10:30 Republic % (Auto) 6.5 % (1.0-6.0) H 09/19/18 10:30 Eos % (Auto) 2.1 % (1.5-5.0) 09/19/18 10:30 Baso % (Auto) 0.3 % (0.0-3.0) 09/19/18 10:30 Lymph # (Auto) 2.2 (1.2-3.4) 09/19/18 10:30 Republic # (Auto) 0.5 (0.1-0.6) 09/19/18 10:30 Eos # (Auto) 0.2 (0.0-0.7) 09/19/18 10:30 Baso # (Auto) 0.02 K/mm3 (0.0-2.0) 09/19/18 10:30 Absolute Neuts (auto) 4.74 (1.4-6.5) 09/19/18 10:30 Sodium 134 mmol/L (132-148) 09/19/18 10:30 Potassium 3.8 mmol/L (3.6-5.0) 09/19/18 10:30 Chloride 103 mmol/L (98-107) 09/19/18 10:30 Carbon Dioxide 24 mmol/L (21-33) 09/19/18 10:30 Anion Gap 12 (10-20) 09/19/18 10:30 BUN 11 mg/dL (7-21) 09/19/18 10:30 Creatinine 0.6 mg/dl (0.7-1.2) L 09/19/18 10:30 Est GFR ( Amer) > 60 09/19/18 10:30 Est GFR (Non-Af Amer) > 60 09/19/18 10:30 Random Glucose 116 mg/dL (70-110) H 09/19/18 10:30 Calcium 9.1 mg/dL (8.4-10.5) 09/19/18 10:30 Phosphorus 4.3 mg/dL (2.5-4.5) 09/17/18 19:31 Magnesium 1.6 mg/dL (1.7-2.2) L 09/17/18 19:31 Iron 85 ug/dL (45-180) 09/19/18 10:30 TIBC 411 ug/dL (265-497) 09/19/18 10:30 % Saturation 21 % (20-55) 09/19/18 10:30 Ferritin 21.1 ng/mL 09/19/18 10:30 Total Bilirubin 0.1 mg/dL (0.2-1.3) L 09/19/18 10:30 AST 21 U/L (14-36) 09/19/18 10:30 ALT 22 U/L (7-56) 09/19/18 10:30 Alkaline Phosphatase 49 U/L (38-126) 09/19/18 10:30 Troponin I < 0.01 ng/mL 09/17/18 19:31 Total Protein 6.7 g/dL (5.8-8.3) 09/19/18 10:30 Albumin 3.7 g/dL (3.0-4.8) 09/19/18 10:30 Globulin 3.1 gm/dL 09/19/18 10:30 Albumin/Globulin Ratio 1.2 (1.1-1.8) 09/19/18 10:30 Beta HCG, Quant 92808.00 mIU/mL (0-6.15) H 09/19/18 10:30 Urine Color Yellow (YELLOW) 09/17/18 20:00 Urine Appearance Clear (CLEAR) 09/17/18 20:00 Urine pH 6.0 (4.7-8.0) 09/17/18 20:00 Ur Specific Celina 1.025 (1.005-1.035) 09/17/18 20:00 Urine Protein Negative mg/dL (<30 mg/dL) 09/17/18 20:00 Urine Glucose (UA) Negative mg/dL (NEGATIVE) 09/17/18 20:00 Urine Ketones Negative mg/dL (NEGATIVE) 09/17/18 20:00 Urine Blood Negative (NEGATIVE) 09/17/18 20:00 Urine Nitrate Negative (NEGATIVE) 09/17/18 20:00 Urine Bilirubin Negative (NEGATIVE) 09/17/18 20:00 Urine Urobilinogen 0.2 E.U./dL (<1 E.U./dL) 09/17/18 20:00 Ur Leukocyte Esterase Small Heather/uL (NEGATIVE) H 09/17/18 20:00 Urine RBC TEST NOT PERFORMED 09/17/18 20:00 Urine WBC 5 - 10 /hpf (0-6) H 09/17/18 20:00 Ur Epithelial Cells 10 - 12 /hpf (0-5) H 09/17/18 20:00 Urine HCG, Qual Positive (NEGATIVE) 09/17/18 20:00 Urine Opiates Screen Negative (NEGATIVE) 09/17/18 20:00 Urine Methadone Screen Negative (NEGATIVE) 09/17/18 20:00 Ur Barbiturates Screen Negative (NEGATIVE) 09/17/18 20:00 Ur Phencyclidine Scrn Positive (NEGATIVE) H 09/17/18 20:00 Ur Amphetamines Screen Negative (NEGATIVE) 09/17/18 20:00 U Benzodiazepines Scrn Negative (NEGATIVE) 09/17/18 20:00 U Oth Cocaine Metabols Negative (NEGATIVE) 09/17/18 20:00 U Cannabinoids Screen Negative (NEGATIVE) 09/17/18 20:00 Attending/Attestation - Attestation I have personally seen and examined this patient.: Yes I have fully participated in the care of the patient.: Yes I have reviewed all pertinent clinical information, including history, physical exam and plan: Yes Notes (Text): 09/20/18 13:25 attending note; Patient seen and examined in room 365. Patient is alert and awake. Complaining of generalized body ache. Not in any acute distress. Tolerating diet well Denies any nausea, vomiting. Denies any urinary symptoms. denies any vaginal bleeding. Patient is a 38-year-old female admitted for abdominal, back, nonspecific pain. 1. Generalized body ache; not in any acute distress. Not taking Tylenol. 2. Active PCP use; drug abuse cessation is strongly advised. 3. Early ; ultrasound reviewed with MARKETING SALES MANAGER in detail. Advised to follow- up with MARKETING SALES MANAGER as outpatient within 2 days and [place]. Information given to the patient. Patient currently refusing further workup. 4. Positive UA; urine cultures negative. Started on amoxicillin. Patient is currently released from senior living. gospel worker evaluation requested. Opiate seeking behavior suspected. Patient is strongly suggested to avoid any medication since she is in early . Advised to follow-up with MARKETING SALES MANAGER for continuous care. Patient will follow up with PMD in [place]. 09/20/18 13:28
== END 2018-09-19 18:08 | disposition home or self-care (01) ==
LOC: ED 18:44 → ERH 09-18 01:56 → 2RSO 09-18 03:12 → 3RNO 09-18 12:10 → 2RSO 09-18 12:13 → 3RNO 09-18 12:52 → INTOOBSV 09-19 10:00 → OBSVTOIN 09-19 10:00
PROVIDERS: ADMIT Internal Medicine; ATTEND Internal Medicine
DX: O23.41 Unspecified infection of urinary tract in pregnancy, first trimester (principal); O09.521 Supervision of elderly multigravida, first trimester; O13.1 Gestational [pregnancy-induced] hypertension without significant proteinuria, first trimester; O99.331 Smoking (tobacco) complicating pregnancy, first trimester; F17.210 Nicotine dependence, cigarettes, uncomplicated; O99.321 Drug use complicating pregnancy, first trimester; F16.10 Hallucinogen abuse, uncomplicated; R07.89 Other chest pain; E83.42 Hypomagnesemia; J45.909 Unspecified asthma, uncomplicated; E66.9 Obesity, unspecified; Z76.5 Malingerer [conscious simulation]; Z98.891 History of uterine scar from previous surgery; Z3A.01 Less than 8 weeks gestation of pregnancy
CPT/HCPCS: 36415; 76815; 80053; 80324; 80345; 80346; 80349; 80353; 80358; 80361; 81001; 81025; 82728; 83540; 83550; 83735; 83992; 84100; 84484; 84702; 84703; 85025; 87086; 93005; 96374; 96375; 96376; 99285; G0378; J2270; J3475; J7030